=== PATIENT | female | born 1985 | race Asian ===

== ENCOUNTER 2022-03-26 22:28 | Emergency (ER) | payer BC, OTHER ==
--- OUTSIDE RECORDS SUMMARY | 2022-03-26 22:37 | XMS REPORT | Continuity of Care Document ---
:1985 Author Organization [facility] t Address [address] [place] [address] Care Team Providers Name Role Phone Hebert Pena Primary Care Physician Bernie Dorsey Attending Clinician Unavailable RICKIE ROBLES Attending Clinician Unavailable JESSICA Attending Clinician Unavailable JESSICA Attending Clinician Unavailable Rickie Robles MD Attending Clinician Doctor Unassigned, Name Attending Clinician Unavailable LEON Attending Clinician Unavailable Pedro FERRER Attending Clinician Leon CARDENAS Attending Clinician Sheela CARDENAS Attending Clinician 3, [facility] Room Attending Clinician Unavailable Dee Dee CARDENAS R Attending Clinician Mazin CARDENAS Attending Clinician Lab, - Db Attending Clinician Unavailable Bernie DE LA O Attending Clinician Unavailable Bernie DE LA O Attending Clinician Unavailable [facility] Attending Clinician Unavailable Ramon CARDENAS M Attending Clinician LEON Admitting Clinician Unavailable Leon CARDENAS Admitting Clinician Payers Payer Name Policy Type Policy Number Effective Date Expiration Date S [facility] [id number] 2020 00:00:00 [facility] [id number] 2021 CHOICE MEDICAID 00:00:00 Problems Condition Condition Condition Status Onset Resolution Last Treating Co mments Source Name Details Category Date Date Treatment Clinician Date Superficia Superficia Disease Active U nivers l l 4-29 ity of dehiscence [place] Medical operation operation [place] wound, wound, initial initial encounter encounter Chorioamni Chorioamni Disease Active U nivers onitis onitis 4-20 ity of 00:00: [place] [facility] Obesity Obesity Disease Active Univers (BMI (BMI 4-09 ity of 30-39.9) 30-39.9) 00:00: [place] [facility] 28 weeks 28 weeks Disease Active Unive rs gestation gestation 4-09 ity of of of 00:00: [place] 00 [facility] pat Branch Premature Premature Disease Active Uni vers rupture of rupture of 4-09 [place] of membranes membranes [place] second [place] second 00 [facility] trimester trimester Bran ch Premature Premature Disease Active Uni vers rupture of rupture of 4-09 [place] membranes membranes [place] 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 3-04 ity of 00:00: [place] [facility] Poor Poor Disease Active U nivers growth growth 3-04 ity of affecting affecting 00:[place] management management 00 Me dical of mother of mother Bran ch in second in second trimester, trimester, single or single or unspecifie unspecifie d fetus d fetus Maternal Maternal Disease Active Unive rs pregestati pregestati 2-25 it y of onal onal 00:00: [place] diabetes diabetes 00 Medica l classes B classes B Bran ch through R, through R, antepartum antepartum High risk High risk Disease Active Uni vers , , 2-25 it y of antepartum antepartum 00:00: [place] [facility] [place] S/P S/P Disease Active Univers 2-25 ity of section section 00:00: [place] 00 Medical Branch Allergies, Adverse Reactions, Alerts Allergy Allergy Status Severity Reaction(s) Onset Inactive Treating Comm ents Source Name Type Date Date Clinician NO KNOWN Drug Active Univers ALLERGIE Class ity of S Formerly [facility] Social History Social Habit Start Date Stop Date Quantity Comments Source ASSERTION 2021-08-25 [facility] 00:00:00 [facility] Alcohol intake 2022-03-20 2022-03-20 Ex-drinker [facility] 00:00:00 00:00:00 (finding) [facility] Exposure to 2022-03-08 2022-03-18 Not sure [facility] SARS-CoV-2 00:00:00 20:49:00 [facility] (event) Branch Tobacco use and 2018-04-10 2018-04-10 Never used Universit y of exposure 00:00:00 00:00:00 [facility] Sex Assigned At [birth year] Universit y of 00:00:00 00:00:00 [facility] Smoking Status Start Date Stop Date Source [facility] smoker [facility] Medications Ordered Filled Start Stop Current Ordering Indication Dosage Frequency Signature Comments Components Source Medication Medication Date Date Medication? Clinician (SIG) Name Name Take by [facility] ers vit 03-10 mouth. ity of no.124/iron 16:35: 00:00 [place] /folic 11 :00 Medical ( Branch VITAMIN ORAL) insulin NPH Yes 24U 24 Units, U nivers (HUMULIN N) 4-19 Subcutaneo it y of injection 13:00: , [facility] 24 Units 00 WITH Medical BREAKFAST, Branch First dose (after last modificati on) on Wed03/10/22 at 0800, Until Discontinu ed, Routine insulin NPH Yes 24U 24 Units, U nivers (HUMULIN N) 4-19 Subcutaneo it y of injection 13:00: , [facility] 24 Units 00 WITH Medical BREAKFAST, Branch First dose (after last modificati on) on Wed03/10/22 at 0800, Until Discontinu ed, Routine insulin Yes [id number] 15U inject 15 Univers regular 4-19 Units ity of human 100 00:00: under the [place] unit/mL 00 skin every Medica l injection morning Branch and evening. insulin NPH Yes 15U inject 15 Univers 100 unit/mL 4-19 Units ity of injection 00:00: under the [place] 00 skin every Medical evening. Branch insulin NPH Yes [id number] 24U inject 24 Univers 100 unit/mL 4-19 Units ity of injection 00:00: under the [place] 00 skin every Medical morning. Branch Yes [id number] 1{tbl} Take 1 Univers vitamin 4-19 tablet by ity of w/FA tablet 00:00: mouth [place] 00 daily. Medical Branch docusate Yes [id number] 240mg Take 1 U nivers calcium 240 4-19 capsule by it y of mg capsule 00:00: mouth once [place] 00 daily as Medical needed for Branch Constipati on. ferrous Yes [id number] 325mg Take 1 Un bart sulfate 325 4-19 tablet by ity of mg (65 mg 00:00: mouth 2 [place] iron) 00 (two) Medical tablet times Branch daily. ibuprofen Yes [id number] 600mg Take 1 Univers 600 mg 4-19 tablet by ity of tablet 00:00: mouth [place] 00 every 6 Medical (six) Branch hours as needed (Pain). Take with food or milk. insulin Yes 15U inject 15 Univers regular 4-19 Units ity of human 100 00:00: under the [place] unit/mL 00 skin every Medica l injection morning Branch and evening. insulin NPH Yes 15U inject 15 Univers 100 unit/mL 4-19 Units ity of injection 00:00: under the [place] 00 skin every Medical evening. Branch insulin NPH Yes [id number] 24U inject 24 Univers 100 unit/mL 4-19 Units ity of injection 00:00: under the [place] 00 skin every Medical morning. Branch Yes [id number] 1{tbl} Take 1 Univers vitamin 4-19 tablet by ity of w/FA tablet 00:00: mouth [place] 00 daily. Medical Branch docusate Yes [id number] 240mg Take 1 U nivers calcium 240 4-19 capsule by it y of mg capsule 00:00: mouth once [place] 00 daily as Medical needed for Branch Constipati on. ferrous Yes [id number] 325mg Take 1 Un bart sulfate 325 4-19 tablet by ity of mg (65 mg 00:00: mouth 2 [place] iron) 00 (two) Medical tablet times Branch daily. ibuprofen Yes [id number] 600mg Take 1 Univers 600 mg 4-19 tablet by ity of tablet 00:00: mouth [place] 00 every 6 Medical (six) Branch hours as needed (Pain). Take with food or milk. insulin Yes 15U inject 15 Univers regular 4-19 Units ity of human 100 00:00: under the [place] unit/mL 00 skin every Medica l injection morning Branch and evening. insulin NPH Yes 15U inject 15 Univers 100 unit/mL 4-19 Units ity of injection 00:00: under the [place] 00 skin every Medical evening. Branch insulin NPH Yes 24U inject 24 Univers 100 unit/mL 4-19 Units ity of injection 00:00: under the [place] 00 skin every Medical morning. Branch Yes [id number] 1{tbl} Take 1 Univers vitamin 4-19 tablet by ity of w/FA tablet 00:00: mouth [place] 00 daily. Medical Branch docusate Yes [id number] 240mg Take 1 U nivers calcium 240 4-19 capsule by it y of mg capsule 00:00: mouth once [place] 00 daily as Medical needed for Branch Constipati on. ferrous Yes [id number] 325mg Take 1 Un bart sulfate 325 4-19 tablet by ity of mg (65 mg 00:00: mouth 2 [place] iron) 00 (two) Medical tablet times Branch daily. ibuprofen Yes [id number] 600mg Take 1 Univers 600 mg 4-19 tablet by ity of tablet 00:00: mouth [place] 00 every 6 Medical (six) Branch hours as needed (Pain). Take with food or milk. insulin Yes 15U inject 15 Univers regular 4-19 Units ity of human 100 00:00: under the [place] unit/mL 00 skin every Medica l injection morning Branch and evening. insulin NPH Yes 15U inject 15 Univers 100 unit/mL 4-19 Units ity of injection 00:00: under the [place] 00 skin every Medical evening. Branch insulin NPH Yes [id number] 24U inject 24 Univers 100 unit/mL 4-19 Units ity of injection 00:00: under the [place] 00 skin every Medical morning. Branch Yes [id number] 1{tbl} Take 1 Univers vitamin 4-19 tablet by ity of w/FA tablet 00:00: mouth [place] 00 daily. Medical Branch docusate Yes [id number] 240mg Take 1 U nivers calcium 240 4-19 capsule by it y of mg capsule 00:00: mouth once [place] 00 daily as Medical needed for Branch Constipati on. ferrous Yes [id number] 325mg Take 1 Un bart sulfate 325 4-19 tablet by ity of mg (65 mg 00:00: mouth 2 [place] iron) 00 (two) Medical tablet times Branch daily. ibuprofen Yes [id number] 600mg Take 1 Univers 600 mg 4-19 tablet by ity of tablet 00:00: mouth [place] 00 every 6 Medical (six) Branch hours as needed (Pain). Take with food or milk. insulin Yes 15U inject 15 Univers regular 4-19 Units ity of human 100 00:00: under the [place] unit/mL 00 skin every Medica l injection morning Branch and evening. insulin NPH Yes 15U inject 15 Univers 100 unit/mL 4-19 Units ity of injection 00:00: under the [place] 00 skin every Medical evening. Branch insulin NPH Yes [id number] 24U inject 24 Univers 100 unit/mL 4-19 Units ity of injection 00:00: under the [place] 00 skin every Medical morning. Branch Yes [id number] 1{tbl} Take 1 Univers vitamin 4-19 tablet by ity of w/FA tablet 00:00: mouth [place] 00 daily. Medical Branch docusate Yes [id number] 240mg Take 1 U nivers calcium 240 4-19 capsule by it y of mg capsule 00:00: mouth once [place] 00 daily as Medical needed for Branch Constipati on. ferrous Yes [id number] 325mg Take 1 Un bart sulfate 325 4-19 tablet by ity of mg (65 mg 00:00: mouth 2 [place] iron) 00 (two) Medical tablet times Branch daily. ibuprofen Yes [id number] 600mg Take 1 Univers 600 mg 4-19 tablet by ity of tablet 00:00: mouth [place] 00 every 6 Medical (six) Branch hours as needed (Pain). Take with food or milk. insulin Yes 15U inject 15 Univers regular 4-19 Units ity of human 100 00:00: under the [place] unit/mL 00 skin every Medica l injection morning Branch and evening. insulin NPH Yes 15U inject 15 Univers 100 unit/mL 4-19 Units ity of injection 00:00: under the [place] 00 skin every Medical evening. Branch insulin NPH Yes 24U inject 24 Univers 100 unit/mL 4-19 Units ity of injection 00:00: under the [place] 00 skin every Medical morning. Branch Yes [id number] 1{tbl} Take 1 Univers vitamin 4-19 tablet by ity of w/FA tablet 00:00: mouth [place] 00 daily. Medical Branch docusate Yes [id number] 240mg Take 1 U nivers calcium 240 4-19 capsule by it y of mg capsule 00:00: mouth once [place] 00 daily as Medical needed for Branch Constipati on. ferrous Yes [id number] 325mg Take 1 Un bart sulfate 325 4-19 tablet by ity of mg (65 mg 00:00: mouth 2 [place] iron) 00 (two) Medical tablet times Branch daily. ibuprofen Yes [id number] 600mg Take 1 Univers 600 mg 4-19 tablet by ity of tablet 00:00: mouth [place] 00 every 6 Medical (six) Branch hours as needed (Pain). Take with food or milk. insulin Yes 15U inject 15 Univers regular 4-19 Units ity of human 100 00:00: under the [place] unit/mL 00 skin every Medica l injection morning Branch and evening. insulin NPH Yes 15U inject 15 Univers 100 unit/mL 4-19 Units ity of injection 00:00: under the [place] 00 skin every Medical evening. Branch insulin NPH Yes [id number] 24U inject 24 Univers 100 unit/mL 4-19 Units ity of injection 00:00: under the [place] 00 skin every Medical morning. Branch Yes [id number] 1{tbl} Take 1 Univers vitamin 4-19 tablet by ity of w/FA tablet 00:00: mouth [place] 00 daily. Medical Branch docusate Yes [id number] 240mg Take 1 U nivers calcium 240 4-19 capsule by it y of mg capsule 00:00: mouth once [place] 00 daily as Medical needed for Branch Constipati on. ferrous Yes [id number] 325mg Take 1 Un bart sulfate 325 4-19 tablet by ity of mg (65 mg 00:00: mouth 2 [place] iron) 00 (two) Medical tablet times Branch daily. ibuprofen Yes [id number] 600mg Take 1 Univers 600 mg 4-19 tablet by ity of tablet 00:00: mouth [place] 00 every 6 Medical (six) Branch hours as needed (Pain). Take with food or milk. insulin Yes [id number] 15U inject 15 Univers regular 4-19 Units ity of human 100 00:00: under the [place] unit/mL 00 skin every Medica l injection morning Branch and evening. insulin NPH Yes [id number] 15U inject 15 Univers 100 unit/mL 4-19 Units ity of injection 00:00: under the [place] 00 skin every Medical evening. Branch insulin NPH Yes [id number] 24U inject 24 Univers 100 unit/mL 4-19 Units ity of injection 00:00: under the [place] 00 skin every Medical morning. Branch Yes [id number] 1{tbl} Take 1 Univers vitamin 4-19 tablet by ity of w/FA tablet 00:00: mouth [place] 00 daily. Medical Branch docusate Yes [id number] 240mg Take 1 U nivers calcium 240 4-19 capsule by it y of mg capsule 00:00: mouth once [place] 00 daily as Medical needed for Branch Constipati on. ferrous Yes [id number] 325mg Take 1 Un bart sulfate 325 4-19 tablet by ity of mg (65 mg 00:00: mouth 2 [place] iron) 00 (two) Medical tablet times Branch daily. ibuprofen Yes [id number] 600mg Take 1 Univers 600 mg 4-19 tablet by ity of tablet 00:00: mouth [place] 00 every 6 Medical (six) Branch hours as needed (Pain). Take with food or milk. HYDROcodone 2021- Yes [id number] 1{tbl} Take 1 U nivers -acetaminop 4-19 -27 tablet by it y of hen 5-325 00:00: 04:59 mouth [place] mg tablet 00 :00 every 6 Medical (six) Branch hours as needed for Pain (scale 7-10) (Pain scale above 4) for up to 7 days. Do not exceed 3 grams of acetaminop hen in 24 hours. Indication s: acute pain HYDROcodone 2021- Yes [id number] 1{tbl} Take 1 U nivers -acetaminop 4-10 03-27 tablet by it y of hen 5-325 00:00: 04:59 mouth [place] mg tablet 00 :00 every 6 Medical (six) Branch hours as needed for Pain (scale 7-10) (Pain scale above 4) for up to 7 days. Do not exceed 3 grams of acetaminop hen in 24 hours. Indication s: acute pain simethicone 2021-0 Yes 160mg 160 mg, Un bart (GAS RELIEF 4-17 Oral, ity of (SIMETHICON 23:00: PC+HS, [place] E)) 00 First dose Medical chewable (after Branch tablet 160 last mg modificati on) on 03/08/22 at 1800, Until Discontinu ed, Routine simethicone 2021-0 Yes 160mg 160 mg, Un bart (GAS RELIEF 4-17 Oral, ity of (SIMETHICON 23:00: PC+HS, [place] E)) 00 First dose Medical chewable (after Branch tablet 160 last mg modificati on) on 03/08/22 at 1800, Until Discontinu ed, Routine acetaminoph 2021-0 Yes 650mg 650 mg, Un bart en 4-17 Oral, ity of (TYLENOL) 21:53: Q6HPRN, [place] tablet 650 28 Starting Medic al mg on Sun Branch 03/08/22 at 1653, Until Discontinu ed, Routine, Pain (scale 1-3) acetaminoph Yes 650mg 650 mg, Un bart en 03-08 Oral, ity of (TYLENOL) 21:53: Q6HPRN, [place] tablet 650 28 Starting Medic al mg on Sun Branch 03/08/22 at 1653, Until Discontinu ed, Routine, Pain (scale 1-3) gentamicin 0 Yes 5mg/kg 280 mg Uni vers 280 mg in 03-08 (rounded ity of NaCl 0.9% 08:30: [place] 285 [place] (NS) 250 mL 00 mg = 5 Medica l IV infusion mg/kg ?57 Bra nch kg [place] weight), IV Infusion, Q24H ABX, First dose (after last modificati on) on [place] 03/08/22 at 0330, Until Discontinu ed, Administer over 60 Minutes, 250 mL
Reas on for Anti-Infec tive: Empiric Therapy for Suspected Infection< br>Empiric Therapy Site: Pelvic
Duration of therapy: 72 hours gentamicin 0 2021- No 5mg/kg 280 mg Un bart 280 mg in 03-08 04-19 (rounded ity o f NaCl 0.9% 08:30: 12:31 from 285 [place] (NS) 250 mL 00 :44 mg = 5 Medica l IV infusion mg/kg ?57 Bra nch kg [place] weight), IV Infusion, Q24H ABX, First dose (after last modificati on) on [place] 03/08/22 at 0330, Until Discontinu ed, Administer over 60 Minutes, 250 mL
Reas on for Anti-Infec tive: Empiric Therapy for Suspected Infection< br>Empiric Therapy Site: Pelvic
Duration of therapy: 72 hours insulin NPH Yes 14U 14 Units, U nivers (HUMULIN N) 03-08 Subcutaneo it y of injection 01:00: [place], [place] 14 Units 00 1999, Medical First dose Branch (after last modificati on) on [facility] 03/07/22 at 2000, Until Discontinu ed, Routine insulin NPH Yes 14U 14 Units, U nivers (HUMULIN N) 03-08 Subcutaneo it y of injection 01:00: [place], QPM AT [place] 14 Units 00 1999, Medical First dose Branch (after last modificati on) on 03/07/22 at 2000, Until Discontinu ed, Routine insulin 2021-0 Yes 15U 15 Units, Unive rs regular 4-16 Subcutaneo ity of human 23:00: [place], [place] (HUMULIN R) 00 DINNER, Medic al injection First dose Bran ch 15 Units (after last modificati on) on 03/07/22 at 1800, Until Discontinu ed, Routine insulin 2021-0 Yes 15U 15 Units, Unive rs regular 4-16 Subcutaneo ity of human 23:00: [place], [place] (HUMULIN R) 00 DINNER, Medic al injection First dose Bran ch 15 Units (after last modificati on) on 03/07/22 at 1800, Until Discontinu ed, Routine lactated 2021-0 2021- No 500mL at 999 Unive rs ringers IV 03-07 04-16 mL/hr, 500 it y of infusion 20:00: 19:50 mL, [place] 500 mL 00 :00 Intravenou Medical s, ONCE, 1 Branch dose, On 03/07/22 at 1500, Routine lactated 0 2021- No 500mL at 999 Unive rs ringers IV 03-07 04-16 mL/hr, 500 it y of infusion 16:15: 16:15 mL, [place] 500 mL 00 :00 Intravenou Medical s, ONCE, 1 Branch dose, On 03/07/22 at 1115, Routine clindamycin Yes 900mg 900 mg, IV Univers in 5 % 03-07 Piggyback, ity of dextrose 15:00: Q8H ABX, [place] (CLEOCIN) 00 First dose Medi pat 900 mg/50 on Sat Branch mL IV 03/07/22 at piggyback 1000, RTU 900 mg Until Discontinu ed, Administer over 30 Minutes, 50 mL
Reas on for Anti-Infec tive: Documented Infection< br>Documen lynn Infection Site: Pelvic
Duration of Therapy: 7 days
Re stricted use approved by: [employer]
human geography faculty member approving Restricted medication : ALLIE COKER clindamycin 2021-0 2022- No 900mg 900 mg, IV Univers in 5 % 03-0719 Piggyback, ity of dextrose 15:00: 12:31 Q8H ABX, [place] (CLEOCIN) 00 :44 First dose Medi pat 900 mg/50 on Sat Branch mL IV 03/07/22 at piggyback 1000, RTU 900 mg Until Discontinu ed, Administer over 30 Minutes, 50 mL
Reas on for Anti-Infec tive: Documented Infection< br>Documen lynn Infection Site: Pelvic
Duration of Therapy: 7 days
Re stricted use approved by: [employer]
human geography faculty member approving Restricted medication : ALLIE COKER simethicone No 120mg 120 mg, U nivers (GAS RELIEF 03-0717 Oral, ity of (SIMETHICON 14:00: 20:18 PC+HS, [place] E)) 00 :27 First dose Medical chewable on Sat Branch tablet 120 03/07/22 at mg 0900, Until Discontinu ed, Routine insulin Yes 15U 15 Units, Unive rs regular -16 Subcutaneo ity of human 13:00: , [facility] (HUMULIN R) 00 WITH Medical injection BREAKFAST, Bran ch 15 Units First dose (after last modificati on) on 03/07/22 at 0800, Until Discontinu ed, Routine insulin Yes 15U 15 Units, Unive rs regular -16 Subcutaneo ity of human 13:00: , [facility] (HUMULIN R) 00 WITH Medical injection BREAKFAST, Bran ch 15 Units First dose (after last modificati on) on 03/07/22 at 0800, Until Discontinu ed, Routine insulin NPH 2021- No 22U 22 Units, Univers (HUMULIN N) 03-0718 Subcutaneo i ty of injection 13:00: 16:12 , [facility] [place] 22 Units 00 :18 WITH Medical BREAKFAST, Branch First dose (after last modificati on) on 03/07/22 at 0800, Until Discontinu ed, Routine ibuprofen Yes 600mg 600 mg, Univ ers (IBU) 16 Oral, Q6H, ity of tablet 600 11:00: First dose [place] mg 00 on [facility] Medical 03/07/22 at Branch 0600, Until Discontinu ed, Routine ibuprofen Yes 600mg 600 mg, [facility] ers (IBU) 4-16 Oral, Q6H, ity of tablet 600 11:00: First dose [place] mg 00 on [facility] Medical 03/07/22 at Branch 0600, Until Discontinu ed, Routine rho(D) Yes 300ug 300 mcg, [facility] [place] [facility] immune 4-16 Intramuscu ity of globulin 10:42: lar, ONCE, [place] (RHOGAM) 28 For 1 Medical syringe 300 dose, Branch mcg Conditiona l, Routine rho(D) Yes 300ug 300 mcg, [facility] [place] [facility] immune 4-16 Intramuscu ity of globulin 10:42: lar, ONCE, [place] (RHOGAM) 28 For 1 Medical syringe 300 dose, Branch mcg Conditiona l, Routine HYDROcodone 0 Yes 2{tbl} 2 tablet, Univers -acetaminop 4-16 Oral, ity of hen (NORCO 10:42: Q6HPRN, [place] 5) 5-325 mg 24 Starting Medi pat tablet 2 on Sat Branch tablet 03/07/22 at 0542, Until Discontinu ed, Routine, Pain (scale 7-10), If uncontroll ed by Ibuprofen HYDROcodone Yes 1{tbl} 1 tablet, Univers -acetaminop 4-16 Oral, ity of hen (NORCO 10:42: Q6HPRN, [place] 5) 5-325 mg 24 Starting Medi pat tablet 1 on Sat Branch tablet 03/07/22 at 0542, Until Discontinu ed, Routine, Pain (scale 4-6), If uncontroll ed by Ibuprofen diphenhydrA Yes 25mg 25 mg, [facility] MINE 4-16 Slow IV ity of (BENADRYL) 10:42: [place], [place] injection 24 Q6HPRN, Medical 25 mg Starting Branch on 03/07/22 at 0542, Until Discontinu ed, Routine, Itching diphenhydrA Yes 25mg 25 mg, [facility] MINE 4-16 Oral, ity of (BENADRYL) 10:42: Q6HPRN, [place] tablet 25 24 Starting Medica l mg on Sat Branch 03/07/22 at 0542, Until Discontinu ed, Routine, Sleep, Itching ondansetron 2021-0 Yes 4mg 4 mg, Slow Univers (ZOFRAN 4-16 IV Push, ity of (PF)) 10:42: Q8HPRN, [place] injection 4 24 Starting Medi pat mg on Sat Branch 03/07/22 at 0542, Until Discontinu ed, Routine, Nausea and Vomiting (N/V) bisacodyL 2021-0 Yes 10mg 10 mg, Univer s (DULCOLAX) 4-16 Rectal, ity of suppository 10:42: QDAILYPRN, [place] 10 mg 24 Starting Medical on Sat Branch 03/07/22 at 0542, Until Discontinu ed, Routine, Constipati on docusate 2021-0 Yes 240mg 240 mg, Unive rs calcium -16 Oral, ity of (SURFAK) 10:42: QDAILYPRN, [place] capsule 240 24 Starting Medi pat mg on Sat Branch 03/07/22 at 0542, Until Discontinu ed, Routine, Constipati on magnesium 2021-0 Yes 30mL 30 mL, Univer s hydroxide -16 Oral, ity of (MILK OF 10:42: QDAILYPRN, [place] MAGNESIA) 24 Starting Medica l 400 mg/5 mL on Sat Branch suspension 03/07/22 at 30 mL 0542, Until Discontinu ed, Routine, Constipati on HYDROcodone 2021-0 Yes 2{tbl} 2 tablet, Univers -acetaminop 4-16 Oral, ity of hen (NORCO 10:42: Q6HPRN, [place] 5) 5-325 mg 24 Starting Medi pat tablet 2 on Sat Branch tablet 03/07/22 at 0542, Until Discontinu ed, Routine, Pain (scale 7-10), If uncontroll ed by Ibuprofen HYDROcodone 2021-0 Yes 1{tbl} 1 tablet, Univers -acetaminop 4-16 Oral, ity of hen (NORCO 10:42: Q6HPRN, [place] 5) 5-325 mg 24 Starting Medi pat tablet 1 on Sat Branch tablet 03/07/22 at 0542, Until Discontinu ed, Routine, Pain (scale 4-6), If uncontroll ed by Ibuprofen diphenhydrA 2021-0 Yes 25mg 25 mg, Univ ers MINE 4-16 Slow IV ity of (BENADRYL) 10:42: [place], [place] injection 24 Q6HPRN, Medical 25 mg Starting Branch on 03/07/22 at 0542, Until Discontinu ed, Routine, Itching diphenhydrA 2021-0 Yes 25mg 25 mg, Univ ers MINE 4-16 Oral, ity of (BENADRYL) 10:42: Q6HPRN, [place] tablet 25 24 Starting Medica l mg on Sat Branch 03/07/22 at 0542, Until Discontinu ed, Routine, Sleep, Itching ondansetron 2021-0 Yes 4mg 4 mg, Slow Univers (ZOFRAN 16 IV Push, ity of (PF)) 10:42: Q8HPRN, [place] injection 4 24 Starting Medi pat mg on Sat Branch 03/07/22 at 0542, Until Discontinu ed, Routine, Nausea and Vomiting (N/V) bisacodyL 2021-0 Yes 10mg 10 mg, Univer s (DULCOLAX) 16 Rectal, ity of suppository 10:42: QDAILYPRN, [place] 10 mg 24 Starting Medical on Sat Branch 03/07/22 at 0542, Until Discontinu ed, Routine, Constipati on docusate 0 Yes 240mg 240 mg, Unive rs calcium 16 Oral, ity of (SURFAK) 10:42: QDAILYPRN, [place] as capsule 240 24 Starting Medi pat mg on Sat Branch 03/07/22 at 0542, Until Discontinu ed, Routine, Constipati on magnesium 2021-0 Yes 30mL 30 mL, Univer s hydroxide 16 Oral, ity of (MILK OF 10:42: QDAILYPRN, [place] as MAGNESIA) 24 Starting Medica l 400 mg/5 mL on Sat Branch suspension 03/07/22 at 30 mL 0542, Until Discontinu ed, Routine, Constipati on ketorolac 2021-0 2022- No 30mg 30 mg, Unive rs (TORADOL) 4-16 04-16 Slow IV ity of injection 08:44: 10:34 Push, PRN, [place] 30 mg 07 :00 1 dose, Medical Starting Branch on 03/07/22 at 0344, Until 03/07/22 at 0534, Routine, Pain (scale 7-10)
F aculty member approving Restricted medication : MONICA BRADLEY gentamicin 2021- No 5mg/kg 280 mg Un bart 280 mg in 03-07 (rounded ity o f NaCl 0.9% 08:30: 10:08 from 285 [place] as (NS) 250 mL 00 :05 mg = 5 Medica l IV infusion mg/kg ?57 Bra nch kg [place] weight), IV Infusion, Q24H ABX, First dose on 03/07/22 at 0330, Until Discontinu ed, Administer over 60 Minutes, 250 mL
Reas on for Anti-Infec tive: Empiric Therapy for Suspected Infection< br>Empiric Therapy Site: Pelvic
Duration of therapy: 72 hours lactated 2021- No 1000mL at 125 Univ ers ringers IV 03-07 mL/hr, ity of infusion 07:45: 10:56 1,000 mL, [place] as 1,000 mL 00 :09 IV Medical Infusion, Branch CONTINUOUS , Starting on 03/07/22 at 0245, Until 03/07/22 at 0556, MICHAEL HYDROcodone 2021- No 1{tbl} 1 tablet, Univers -acetaminop 03-07 Oral, ity of hen (NORCO) 07:39: 09:35 Q6HPRN, 1 [place] 10-325 mg 01 :00 dose, Medical tablet 1 Starting Branch tablet on 03/07/22 at 0239, Until Discontinu ed, Routine, Pain (scale 7-10) clindamycin 2021- No 900mg 900 mg, IV Univers in 5 % 03-07 Piggyback, ity of dextrose 07:15: 07:51 O.R. Wei (CLEOCIN) 44 :00 HOLDING Medical 900 mg/50 ONCE, 1 Branch mL IV dose, piggyback Starting RTU 900 mg on 03/07/22 at 0215, Until Discontinu ed, Administer over 30 Minutes, 50 mL
Reas on for Anti-Infec tive: Empiric Therapy for Suspected Infection< br>Empiric Therapy Site: Pelvic
Duration of therapy: 72 hours
R estricted use approved by: [employer]
human geography faculty member approving Restricted medication : ALLIE COKER magnesium 2021- No 2g/h 2 g/hr (50 U nivers sulfate in 03-07-16 mL/hr), at it y of water for 07:00: 10:56 50 mL/hr, [place] injection 00 :09 IV Medical 20 gram/500 Infusion, Bra nch mL (4 %) IV CONTINUOUS infusion , Starting on 03/07/22 at 0200, Until 03/07/22 at 0556, Routine Yes Take by [facility] vit 03-07 mouth. ity of no.124/iron 04:16: [place] /folic 48 Medical ( Branch VITAMIN ORAL) lactated 2021- No 500mL at 999 [facility] ringers IV 03-07- mL/hr, 500 it y of infusion 03:45: 02:23 mL, [place] 500 mL 00 :00 Intravenou Medical s, ONCE, 1 Branch dose, On Wed03/06/22 at 2245, Routine insulin NPH 2021- No 28U 28 Units, Univers (HUMULIN N) 03-07 Subcutaneo i ty of injection 02:00: 06:31 us, QHS, [place] 28 Units 00 :29 First dose Medic al (after Branch last modificati on) on Wed03/06/22 at 2100, Until Discontinu ed, Routine insulin 2021- No 30U 30 Units, Univ ers regular 03-06 Subcutaneo ity o f human 23:00: 10:56 us, Wei (HUMULIN R) 00 :10 DINNER, Medic al injection First dose Bran ch 30 Units (after last modificati on) on Wed03/06/22 at 1800, Until Discontinu ed, Routine insulin NPH 2021- No 42U 42 Units, Univers (HUMULIN N) 03-06 Subcutaneo i ty of injection 14:00: 13:49 us, QAM, [place] 42 Units 00 :17 First dose Medic al (after Branch last modificati on) on Wed03/06/22 at 0900, Until Discontinu ed, Routine insulin No 26U 26 Units, Univ ers regular 03-06 Subcutaneo ity o f human 13:00: 13:49 us, QAM Wei (HUMULIN R) 00 :17 WITH Medical injection BREAKFAST, Bran ch 26 Units First dose (after last modificati on) on Wed03/06/22 at 0800, Until Discontinu ed, Routine insulin 2021- No 2U 2 Units, Unive rs regular 03-06 Subcutaneo ity o f human 08:00: 07:01 us, ONCE, [place] (HUMULIN R) 00 :00 1 dose, On Me dical injection 2 Wed Branch Units 03/06/22 at 0300, Routine insulin NPH No 26U 26 Units, Univers (HUMULIN N) 03-06 Subcutaneo i ty of injection 02:00: 13:49 us, QHS, [place] 26 Units 00 :17 First dose Medic al (after Branch last modificati on) on Wed03/05/22 at 2100, Until Discontinu ed, Routine insulin No 26U 26 Units, Univ ers regular 03-05 Subcutaneo ity o f human 23:00: 13:49 , Wei (HUMULIN R) 00 :17 DINNER, Medic al injection First dose Bran ch 26 Units (after last modificati on) on Wed03/05/22 at 1800, Until Discontinu ed, Routine insulin NPH No 40U 40 Units, Univers (HUMULIN N) 03-05 Subcutaneo i ty of injection 14:00: 15:09 us, QAM, [place] 40 Units 00 :31 First dose Medic al (after Branch last modificati on) on Wed03/05/22 at 0900, Until Discontinu ed, Routine insulin No 26U 26 Units, Univ ers regular 03-05 Subcutaneo ity o f human 13:00: 15:09 us, QAM [place] (HUMULIN R) 00 :31 WITH Medical injection BREAKFAST, Bran ch 26 Units First dose (after last modificati on) on Wed03/05/22 at 0800, Until Discontinu ed, Routine insulin No 24U 24 Units, [facility] ers regular 03-04 Subcutaneo ity o f human 23:00: 15:09 us, [place] (HUMULIN R) 00 :31 DINNER, Medic al injection First dose Bran ch 24 Units (after last modificati on) on Wed03/04/22 at 1800, Until Discontinu ed, Routine Sliding No Subcutaneo Uni vers Scale 03-04 us, Q6H, ity of Insulin-Reg 17:00: 10:56 First dose [place] ular + Fsbg 00 :09 (after Medica l Testing last Branch modificati on) on Wed03/04/22 at 1200, Until Discontinu ed, Routine insulin NPH No 38U 38 Units, Univers (HUMULIN N) 03-04 Subcutaneo i ty of injection 14:00: 15:25 us, QAM, [place] 38 Units 00 :22 First dose Medic al (after Branch last modificati on) on Wed03/04/22 at 0900, Until Discontinu ed, Routine insulin No 24U 24 Units, [facility] ers regular 03-04 Subcutaneo ity o f human 13:00: 15:25 [facility] WITH Medical injection BREAKFAST, Bran ch 24 Units First dose (after last modificati on) on Wed03/04/22 at 0800, Until Discontinu ed, Routine insulin NPH No 24U 24 Units, Univers (HUMULIN N) 03-04 Subcutaneo i ty of injection 02:00: 15:09 us, QHS, [place] 24 Units 00 :31 First dose Medic al (after Branch last modificati on) on Wed03/03/22 at 2100, Until Discontinu ed, Routine insulin 2021- No 22U 22 Units, Univ ers regular 03-03 Subcutaneo ity o f human 23:00: 15:25 us, [place] (HUMULIN R) 00 :22 DINNER, Medic al injection First dose Bran ch 22 Units (after last modificati on) on Wed03/03/22 at 1800, Until Discontinu ed, Routine Sliding 2021- No Subcutaneo Uni vers Scale 03-03 us, AC+HS, ity of Insulin-Reg 16:30: 15:25 First dose [place] ular + Fsbg 00 :22 on Wed Medica l Testing 03/03/22 at Branch 1130, Until Discontinu ed, Routine insulin NPH 2021- No 36U 36 Units, Univers (HUMULIN N) 03-03 Subcutaneo i ty of injection 14:00: 15:46 us, QAM, [place] 36 Units 00 :59 First dose Medic al on Wed Branch 03/03/22 at 0900, Until Discontinu ed, Routine insulin 2021- No 22U 22 Units, Univ ers regular 03-03 Subcutaneo ity o f human 13:00: 15:46 us, QAM [place] (HUMULIN R) 00 :59 WITH Medical injection BREAKFAST, Bran ch 22 Units First dose on Wed03/03/22 at 0800, Until Discontinu ed, Routine insulin NPH 2021- No 22U 22 Units, Univers (HUMULIN N) 03-03 Subcutaneo i ty of injection 02:00: 15:46 us, QHS, [place] 22 Units 00 :59 First dose Medic al (after Branch last modificati on) on Wed03/02/22 at 2100, Until Discontinu ed, Routine insulin 2021- No 20U 20 Units, Univ ers regular 03-02 Subcutaneo ity o f human 23:00: 15:46 us, [place] (HUMULIN R) 00 :59 DINNER, Medic al injection First dose Bran ch 20 Units on Wed03/02/22 at 1800, Until Discontinu ed, Routine insulin 2021- No 1U/h 1 Units/hr Uni vers regular 03-02 (1 mL/hr), ity o f human 01:39: 23:56 IV [place] (HUMULIN R) 21 :21 Infusion, Med ical 100 Units TITRATE, Branch in NaCl Parameters 0.9% (NS) in Admin. 100 mL Instr., infusion Starting on Wed03/01/22 at 2038
Pr ior to connecting infusion to peripheral line, waste a minimum of 25 mL to allow maximum adherence to the plastic tubing.&nb sp; D eliver via volume controlled infusion pump with buretrol at the most proximal port. Add 1 hours volume to the buretrol each hour and infuse.&nb sp; & nbsp;&nbsp ;Instructi on for insulin drip: Please waste the first 30 ml of the drip. FSBG q1hr.&nbsp ; &nb sp;Check FSBG q 1hr. See separate fluid order&nbsp ; If FSBG >191, titrate insulin drip to 10 units/hr and notify hide house supervisor. If FSBG 171-190, titrate insulin drip to 8 units/hr If FSBG 151-170, titrate insulin drip to 6 unit/hr If FSBG 131-150, titrate insulin drip to 4 units/hr If FSBG 111-130, titrate insulin drip to 3 units/hr&n bsp;If FSBG 91-110, titrate insulin drip to 2 units/hr<B R>If FSBG 71-90, titrate insulin drip to 1 units/hr&n bsp;If FSBG <70, stop insulin, start D5 at 200 mL/hr and notify MD. Check blood glucose every 15 minutes until glucose > 70 twice. When blood glucose is 70, restart insulin infusion at lower algorithm and reduce D5 to 100 mL/hr&nbsp ;If FSBG < 50, stop insulin, start D10 at 200 mL/hr. Check blood glucose every 15 minutes until glucose > 70 twice. When blood glucose is 70, restart insulin infusion at lower algorithm and reduce D5 to 100 mL/hr
insulin 2021-0 2021- No 1U/h 1 Units/hr Uni vers regular 03-01-11 (1 mL/hr), ity o f human 23:42: 01:39 IV [place] (HUMULIN R) 52 :51 Infusion, Med ical 100 Units TITRATE, Branch in NaCl Parameters 0.9% (NS) in Admin. 100 mL Instr., infusion Starting on 03/01/22 at 1842
Pr ior to connecting infusion to peripheral line, waste a minimum of 25 mL to allow maximum adherence to the plastic tubing.&nb sp; D eliver via volume controlled infusion pump with buretrol at the most proximal port. Add 1 hours volume to the buretrol each hour and infuse.&nb sp; & nbsp;&nbsp ;Instructi on for insulin drip: Please waste the first 30 ml of the drip. FSBG q1hr.&nbsp ; &nb sp;Check FSBG q 1hr. See separate fluid order&nbsp ; If FSBG >191, titrate insulin drip to 8 units/hr and notify hide house supervisor. If FSBG 171-190, titrate insulin drip to 6 units/hr If FSBG 151-170, titrate insulin drip to 5 unit/hr If FSBG 131-150, titrate insulin drip to 4 units/hr If FSBG 111-130, titrate insulin drip to 3 units/hr&n bsp;If FSBG 91-110, titrate insulin drip to 2 units/hr&l t;BR>If FSBG 71-90, titrate insulin drip to 1 units/hr&n bsp;If FSBG <70, stop insulin, start D5 at 200 mL/hr and notify MD. Check blood glucose every 15 minutes until glucose > 70 twice. When blood glucose is 70, restart insulin infusion at lower algorithm and reduce D5 to 100 mL/hr&nbsp ;If FSBG < 50, stop insulin, start D10 at 200 mL/hr. Check blood glucose every 15 minutes until glucose > 70 twice. When blood glucose is 70, restart insulin infusion at lower algorithm and reduce D5 to 100 mL/hr
Sliding 2021-2021- No Subcutaneo Uni vers Scale 4-10 04-10 us, AC+HS, ity of Insulin-Reg 21:30: 23:43 First dose [place] ular + Fsbg 00 :43 on [place] Medica l Testing 03/01/22 at Branch 1630, Until Discontinu ed, Routine insulin 2021- No 1U/h 1 Units/hr Uni vers regular 03-01-10 (1 mL/hr), ity o f human 17:15: 23:43 IV [place] (HUMULIN R) 32 :43 Infusion, Med ical 100 Units TITRATE, Branch in NaCl Parameters 0.9% (NS) in Admin. 100 mL Instr., infusion Starting on [place] 03/01/22 at 1215
Pr ior to connecting infusion to peripheral line, waste a minimum of 25 mL to allow maximum adherence to the plastic tubing.&nb sp; D eliver via volume controlled infusion pump with buretrol at the most proximal port. Add 1 hours volume to the buretrol each hour and infuse.&nb sp; & nbsp;&nbsp ;Instructi on for insulin drip: Please waste the first 30 ml of the drip. FSBG q1hr.&nbsp ; &nb sp;Check FSBG q 1hr. See separate fluid order&nbsp ; If FSBG >191, titrate insulin drip to 8 units/hr and notify hide house supervisor. If FSBG 171-190, titrate insulin drip to 6 units/hr If FSBG 151-170, titrate insulin drip to 5 unit/hr If FSBG 131-150, titrate insulin drip to 4 units/hr If FSBG 111-130, titrate insulin drip to 3 units/hr&n bsp;If FSBG 91-110, titrate insulin drip to 2 units/hr&l t;BR>If FSBG 71-90, titrate insulin drip to 1 units/hr&n bsp;If FSBG <70, stop insulin, start D5 at 200 mL/hr and notify MD. Check blood glucose every 15 minutes until glucose > 70 twice. When blood glucose is 70, restart insulin infusion at lower algorithm and reduce D5 to 100 mL/hr&nbsp ;If FSBG < 50, stop insulin, start D10 at 200 mL/hr. Check blood glucose every 15 minutes until glucose > 70 twice. When blood glucose is 70, restart insulin infusion at lower algorithm and reduce D5 to 100 mL/hr
insulin 2021- No 8U/h 8 Units/hr Uni vers regular 03-0110 (8 mL/hr), ity o f human 16:45: 17:18 IV [place] (HUMULIN R) 48 :31 Infusion, Med ical 100 Units TITRATE, Branch in NaCl Parameters 0.9% (NS) in Admin. 100 mL Instr., infusion Starting on [place] 03/01/22 at 1145
Pr ior to connecting infusion to peripheral line, waste a minimum of 25 mL to allow maximum adherence to the plastic tubing.&nb sp; D eliver via volume controlled infusion pump with buretrol at the most proximal port. Add 1 hours volume to the buretrol each hour and infuse.&nb sp; & nbsp;&nbsp ;Instructi on for insulin drip: Please waste the first 30 ml of the drip. FSBG q1hr.
2021- No 1{tbl} 1 tablet, U nivers vitamin 03-0116 Oral, ity of w/FA tablet 14:00: 10:56 DAILY, [place] as 1 tablet 00 :09 First dose Medic al on [facility] 03/01/22 at 0900, Until Discontinu ed, Routine insulin 2021- No 4U/h 4 Units/hr Uni vers regular 03-01 (4 mL/hr), ity o f human 13:43: 16:46 IV [place] (HUMULIN R) 14 :19 Infusion, Med ical 100 Units TITRATE, Branch in NaCl Parameters 0.9% (NS) in Admin. 100 mL Instr., infusion Starting on [place] 03/01/22 at 0843
Pr ior to connecting infusion to peripheral line, waste a minimum of 25 mL to allow maximum adherence to the plastic tubing.&nb sp; D eliver via volume controlled infusion pump with buretrol at the most proximal port. Add 1 hours volume to the buretrol each hour and infuse.&nb sp; & nbsp;&nbsp ;Instructi on for insulin drip: Please waste the first 30 ml of the drip. FSBG q1hr. &nbs p;BG < 80 &n bsp; &nbs p; &n bsp; &nbs p; In sulin 0 unit/hr&nb sp; & nbsp;&nbsp ; &nb sp; & nbsp; IVF at 125 ml/hr D5LR BG 80-100&nbs p; &n bsp; &nbs p; &n bsp; Insulin 0.5 unit/hr&nb sp; & nbsp;&nbsp ; &nb sp; IVF at 125 ml/hr D5LR BG &n bsp;101-14 0 &nb sp; & nbsp;&nbsp ; Ins ulin 1 unit/hr&nb sp; & nbsp;&nbsp ; &nb sp; & nbsp;& nbsp;&nbsp ;IVF at 125 ml/hr D5LR BG &n bsp;141-18 0 &nb sp;&nb sp; & nbsp;&nbsp ;Insulin 1.5 unit/hr&nb sp; & nbsp;&nbsp ; &nb sp; IVF at 125 ml/hr&nbsp ; NS& nbsp;BG&nb sp; 1 81-220&nbs p; &n bsp; &nbs p;Insulin 2.0 unit/hr&nb sp; & nbsp;&nbsp ; &nb sp; IVF at 125 ml/hr&nbsp ; NS& nbsp;BG&nb sp; > 220 & nbsp;&nbsp ; &nb sp; & nbsp;&nbsp ; &nb sp;Insulin 2.5 unit/hr&nb sp; & nbsp;&nbsp ; &nb sp; IVF at 125 ml/hr&nbsp ; NS& nbsp;BG&nb sp; > 250 & nbsp;&nbsp ; &nb sp; & nbsp;&nbsp ; &nb sp;Notify supervisor dog license officer&nb sp; IVF at 125 ml/hr&nbsp ; NS< br> betamethaso 2021- No 12mg 12 mg, Uni vers ne acet,sod 03-01 Intramuscu i ty of phos 09:00: 09:37 lar, ONCE, Wei (CELESTONE 00 :00 1 dose, On Med ical SOLUSPAN) 6 [place] Branch mg/mL 03/01/22 at injection 0400, 12 mg Routine insulin 2021- No 1U/h 1 Units/hr Uni vers regular 03-01 (1 mL/hr), ity o f human 07:43: 13:43 IV [place] (HUMULIN R) 12 :26 Infusion, Med ical 100 Units TITRATE, Branch in NaCl Parameters 0.9% (NS) in Admin. 100 mL Instr., infusion Starting on 03/01/22 at 0243
Pr ior to connecting infusion to peripheral line, waste a minimum of 25 mL to allow maximum adherence to the plastic tubing.&nb sp; D eliver via volume controlled infusion pump with buretrol at the most proximal port. Add 1 hours volume to the buretrol each hour and infuse.&nb sp; & nbsp;&nbsp ;Instructi on for insulin drip: Please waste the first 30 ml of the drip. FSBG q1hr. &nbs p;BG < 80 &n bsp; &nbs p; &n bsp; &nbs p; In sulin 0 unit/hr&nb sp; & nbsp;&nbsp ; &nb sp; & nbsp; IVF at 125 ml/hr D5LR BG 80-100&nbs p; &n bsp; &nbs p; &n bsp; Insulin 0.5 unit/hr&nb sp; & nbsp;&nbsp ; &nb sp; IVF at 125 ml/hr D5LR BG &n bsp;101-14 0 &nb sp; & nbsp;&nbsp ; Ins ulin 1 unit/hr&nb sp; & nbsp;&nbsp ; &nb sp; & nbsp;& nbsp;&nbsp ;IVF at 125 ml/hr D5LR BG &n bsp;141-18 0 &nb sp;&nb sp; & nbsp;&nbsp ;Insulin 1.5 unit/hr&nb sp; & nbsp;&nbsp ; &nb sp; IVF at 125 ml/hr&nbsp ; NS& nbsp;BG&nb sp; 1 81-220&nbs p; &n bsp; &nbs p;Insulin 2.0 unit/hr&nb sp; & nbsp;&nbsp ; &nb sp; IVF at 125 ml/hr&nbsp ; NS& nbsp;BG&nb sp; > 220 & nbsp;&nbsp ; &nb sp; & nbsp;&nbsp ; &nb sp;Insulin 2.5 unit/hr&nb sp; & nbsp;&nbsp ; &nb sp; IVF at 125 ml/hr&nbsp ; NS& nbsp;BG&nb sp; > 250 & nbsp;&nbsp ; &nb sp; & nbsp;&nbsp ; &nb sp;Notify supervisor dog license officer&nb sp; IVF at 125 ml/hr&nbsp ; NS< br> magnesium 2021- No 2g/h 2 g/hr (50 U nivers sulfate in 03-01 04-10 mL/hr), at it y of water for 06:30: 18:29 50 mL/hr, [place] injection 00 :00 IV Medical 20 gram/500 Infusion, Bra nch mL (4 %) IV CONTINUOUS infusion , Starting on 03/01/22 at 0130, Until 03/01/22 at 1329, MICHAEL Sliding Subcutaneo Uni vers Scale 4- 04-10 us, Q4H, ity of Insulin-Reg 05:00: 06:45 First dose [place] ular + Fsbg 00 :48 (after Medica l Testing last Branch modificati on) on 03/01/22 at 0000, Until Discontinu ed, Routine Sliding No Subcutaneo Uni vers Scale 4-10 04-10 us, Q4H, ity of Insulin-Reg 01:00: 04:58 First dose [place] ular + Fsbg 00 :13 (after Medica l Testing last Branch modificati on) on 02/28/22 at 2000, Until Discontinu ed, Routine insulin No 20U 20 Units, Univ ers regular 03-01-10 Subcutaneo ity o f human 01:00: 06:45 us, QPM, [place] (HUMULIN R) 00 :48 First dose Me dical injection on Sat Branch 20 Units 02/28/22 at 2000, Until Discontinu ed, Routine insulin NPH 2021- No 22U 22 Units, Univers (HUMULIN N) 03-01 Subcutaneo i ty of injection 01:00: 06:45 us, QPM, [place] 22 Units 00 :48 First dose Medic al on Sat Branch 02/28/22 at 2000, Until Discontinu ed, Routine lactated 2021- No 1000mL at 125 Univ ers ringers IV 02-28-16 mL/hr, ity of infusion 17:30: 10:56 1,000 mL, [place] 1,000 mL 00 :09 IV Medical Infusion, Branch CONTINUOUS , Starting on 02/28/22 at 1230, Until 03/07/22 at 0556, Routine Sliding 2021- No Subcutaneo Uni vers Scale 02-28 us, AC+HS, ity of Insulin-Reg 16:30: 23:57 First dose [place] ular + Fsbg 00 :51 on Sat Medica l Testing 02/28/22 at Branch 1130, Until Discontinu ed, Routine magnesium 2021- No 2g/h 2 g/hr (50 U nivers sulfate in 02-28-10 mL/hr), at it y of water for 15:45: 00:41 50 mL/hr, [place] injection 00 :38 IV Medical 20 gram/500 Infusion, Bra nch mL (4 %) IV CONTINUOUS infusion , Starting on 02/28/22 at 1045, Until 02/28/22 at 1941, Routine docusate 2021- No 240mg 240 mg, [facility] ers calcium 02-28- Oral, ity of (SURFAK) 14:10: 10:56 QPRN, [place] capsule 240 16 :09 Starting Medi pat mg on Sat Branch 02/28/22 at 0910, Until 03/07/22 at 0556, Routine, Constipati on Yes Take by [facility] rs vit 4-09 mouth. ity of no.124/iron 07:12: [place] /folic 08 Medical ( Branch VITAMIN ORAL) Yes Take by [facility] rs vit 4-09 mouth. ity of no.124/iron 07:12: [place] /folic 08 Medical ( Branch VITAMIN ORAL) Yes Take by [facility] rs vit 3-04 mouth. ity of no.124/iron 11:58: [place] /folic 28 Medical ( Branch VITAMIN ORAL) Yes Take by Unive rs vit 3-04 mouth. ity of no.124/iron 11:58: [place] /folic 28 Medical ( Branch VITAMIN ORAL) Yes Take by Unive rs vit 3-04 mouth. ity of no.124/iron 11:58: [place] /folic 28 Medical ( Branch VITAMIN ORAL) Yes Take by Unive rs vit 3-04 mouth. ity of no.124/iron 11:58: [place] /folic 28 Medical ( Branch VITAMIN ORAL) Yes Take by Unive rs vit 3-04 mouth. ity of no.124/iron 11:58: [place] /folic 28 Medical ( Branch VITAMIN ORAL) Yes Take by Unive rs vit 3-04 mouth. ity of no.124/iron 11:58: [place] /folic 28 Medical ( Branch VITAMIN ORAL) insulin Yes Inject 14 Univers regular 3-04 units ity of human 100 00:00: every am [place] unit/mL 00 and 11 Medical injection units Branch every PM insulin NPH Yes Inject 28 Univers 100 unit/mL 3-04 units ity of injection 00:00: every AM [place] 00 and 11 Medical units Branch every 9 PM insulin 0 Yes Inject 14 Univers regular 3-04 units ity of human 100 00:00: every am [place] unit/mL 00 and 11 Medical injection units Branch every PM insulin NPH Yes Inject 28 Univers 100 unit/mL 3-04 units ity of injection 00:00: every AM [place] 00 and 11 Medical units Branch every 9 PM insulin 0 Yes Inject 14 Univers regular 3-04 units ity of human 100 00:00: every am [place] unit/mL 00 and 11 Medical injection units Branch every PM insulin NPH Yes Inject 28 Univers 100 unit/mL 3-04 units ity of injection 00:00: every AM [place] 00 and 11 Medical units Branch every 9 PM insulin Yes Inject 14 Univers regular 3-04 units ity of human 100 00:00: every am [place] unit/mL 00 and 11 Medical injection units Branch every PM insulin NPH Yes Inject 28 Univers 100 unit/mL 3-04 units ity of injection 00:00: every AM [place] 00 and 11 Medical units Branch every 9 PM insulin 0 Yes Inject 14 Univers regular 3-04 units ity of human 100 00:00: every am [place] unit/mL 00 and 11 Medical injection units Branch every PM insulin NPH Yes Inject 28 Univers 100 unit/mL 3-04 units ity of injection 00:00: every AM [place] 00 and 11 Medical units Branch every 9 PM insulin Yes Inject 14 Univers regular 3-04 units ity of human 100 00:00: every am [place] unit/mL 00 and 11 Medical injection units Branch every PM insulin NPH 0 Yes Inject 28 Univers 100 unit/mL 3-04 units ity of injection 00:00: every AM [place] 00 and 11 Medical units Branch every 9 PM insulin 0 Yes Inject 14 Univers regular 3-04 units ity of human 100 00:00: every am [place] unit/mL 00 and 11 Medical injection units Branch every PM insulin NPH 0 Yes Inject 28 [facility] 100 unit/mL 3-04 units ity of injection 00:00: every AM [place] 00 and 11 Medical units Branch every 9 PM insulin 0 Yes Inject 14 [facility] regular 3-04 units ity of human 100 00:00: every am [place] unit/mL 00 and 11 Medical injection units Branch every PM insulin NPH 0 Yes Inject 28 [facility] 100 unit/mL 3-04 units ity of injection 00:00: every AM [place] 00 and 11 Medical units Branch every 9 PM insulin 0 Yes Inject 14 [facility] regular 3-04 units ity of human 100 00:00: every am [place] unit/mL 00 and 11 Medical injection units Branch every PM insulin NPH 0 Yes Inject 28 [facility] 100 unit/mL 3-04 units ity of injection 00:00: every AM [place] 00 and 11 Medical units Branch every 9 PM insulin 2021- No [id number] Inject 14 Univers regular 3-04 04-19 units ity of human 100 00:00: 00:00 every am [place] unit/mL 00 :00 and 11 Medical injection units Branch every PM insulin NPH 2021- No [id number] Inject 28 Univers 100 unit/mL 3-04 04-19 units ity of injection 00:00: 00:00 every AM [place] as 00 :00 and 11 Medical units Branch every 9 PM HUMALOG 100 2021- No 22U 22 Units U nivers unit/mL 04-06-04 before ity of solution 00:00: 00:00 meals. [place] 00 :00 Medical Branch LEVEMIR 2021- No INJECT 50 Univ ers FLEXTOUCH 04-06- UNITS ity of 100 unit/mL 00:00: 00:00 SUBCUTANEO [place] (3 mL) 00 :00 USLY ONCE Medical injection A DAY Branch BEFORE BEDTIME MEAL ramipril 5 2021- No TAKE ONE Un bart mg capsule 16 -25 CAPSULE BY it y of 00:00: 00:00 MOUTH ONCE [place] 00 :00 A DAY Medical Branch fenofibrate 2021- No TAKE 1 Uni vers 145 mg -16 -25 TABLET BY ity of tablet 00:00: 00:00 MOUTH ONCE [place] 00 :00 A WITH Medical FOOD Branch TRULICITY 2021- No INJECT 1 Uni vers 1.5 mg/0.5 -16 -25 SYRINGE ity o f mL PnIj 00:00: 00:00 SUBCUTANEO [place] 00 :00 USLY ONCE Medical A WEEK ON Branch THE SAME DAY atorvastati 2021- No 20mg Take 20 mg Univers n 20 mg -27 -25 by mouth ity of tablet 00:00: 00:00 daily. [place] 00 :00 Medical Branch Ramipril Ramipril Yes Luis F [address] [facility] Atorvastati Atorvastati Yes Luis F [address] [facility] Synjardy Synjardy Yes Luis F take [address] [facility] tablet by [facility] - mouth [facility] twice a l day with Outpati meals ent Clinics BD Pen BD Pen Yes Luis F [address] [facility] Needle [facility] needle [facility] - Short U/F Short U/F [facility] Fenofibrate Fenofibrate Yes Luis F [address] [facility] Tresiba Tresiba Yes Luis F inject [address] FlexTouch FlexTouch [facility] units [facility] Victoza Victoza Yes Luis F INJECT 1.[address] [facility] ONCE [facility] - A DAY ONCE [facility] A DAY l [facility]pat[facility]ics Immunizations Ordered Filled Immunization Date Status Comments Sour e Immunization Name Name HPV9 2022-03-08 Completed [facility] 00[facility]: [facility] HPV9 2022-03-08 Completed [facility] 00:00:00 [facility] HPV9 2022-03-08 Completed [facility] 00:00:00 [facility] HPV9 2022-03-08 Completed [facility] 00:00:00 [facility] HPV9 2022-03-08 Completed [facility] 00:00:00 [facility] HPV9 2022-03-08 Completed [facility] 00:00:00 [facility] HPV9 2022-03-08 Completed [facility] 00:00:00 [facility] HPV9 2022-03-08 Completed [facility] 00:00:00 [facility] HPV9 2022-03-08 Completed [facility] 00:00:00 [facility] TDAP 2022-03-01 Completed [facility] 00:00:00 [facility] TDAP 2022-03-01 Completed [facility] 00:00:00 [facility] TDAP 2022-03-01 Completed [facility] 00:00:00 [facility] TDAP 2022-03-01 Completed [facility] 00:00:00 [facility] TDAP 2022-03-01 Completed [facility] 00:00:00 [facility] TDAP 2022-03-01 Completed [facility] 00:00:00 [facility] TDAP 2022-03-01 Completed [facility] 00:00:00 [facility] TDAP 2022-03-01 Completed [facility] 00:00:00 [facility] TDAP 2022-03-01 Completed [facility] 00:00:00 [facility] TDAP 2022-03-01 Completed [facility] 00:00:00 [facility] TDAP 2022-03-01 Completed [facility] 00:00:00 [facility] Influenza Virus 2021-10-21 Completed Universit y of Vaccine 00:00:00 [facility] Influenza Virus 2021-10-21 Completed Universit y of Vaccine 00:00:00 [facility] Influenza Virus 2021-10-21 Completed Universit y of Vaccine 00:00:00 [facility] Influenza Virus 2021-10-21 Completed Universit y of Vaccine 00:00:00 [facility] Influenza Virus 2021-10-21 Completed Universit y of Vaccine 00:00:00 [facility] Influenza Virus 2021-10-21 Completed Universit y of Vaccine 00:00:00 [facility] Influenza Virus 2021-10-21 Completed Universit y of Vaccine 00:00:00 [facility] Influenza Virus 2021-10-21 Completed Universit y of Vaccine 00:00:00 [facility] Influenza Virus 2021-10-21 Completed Universit y of Vaccine 00:00:00 [facility] Influenza Virus 2021-10-21 Completed Universit y of Vaccine 00:00:00 [facility] Influenza Virus 2021-10-21 Completed Universit y of Vaccine 00:00:00 [facility] Influenza Virus 2021-10-21 Completed Universit y of Vaccine 00:00:00 [facility] Influenza Virus 2021-10-21 Completed Universit y of Vaccine 00:00:00 [facility] Influenza Virus 2021-10-21 Completed Universit y of Vaccine 00:00:00 [facility] Influenza Virus 2021-10-21 Completed Universit y of Vaccine 00:00:00 [facility] Influenza Virus 2021-10-21 Completed Universit y of Vaccine 00:00:00 [facility] Influenza Virus 2021-10-21 Completed Universit y of Vaccine 00:00:00 [facility] Influenza Virus 2021-10-21 Completed Universit y of Vaccine 00:00:00 [facility] Afluria single dose Afluria single dose 2019-09-[address] [facility] Vital Signs Vital Name Observation Time Observation Value Comments Source Systolic blood 2022-03-20 16:29:00 118 mm[Hg] Univer sity of pressure [facility] Diastolic blood 2022-03-20 16:29:00 86 mm[Hg] Unive rsity of pressure [facility] Heart rate 2022-03-20 16:29:00 85 /min [facility] Body temperature 2022-03-20 16:29:00 36.72 Sheila [facility] ers[facility] Respiratory rate 2022-03-20 16:29:00 18 /min [facility] Body height 2022-03-20 16:29:00 165.1 cm [facility] Body weight 2022-03-20 16:29:00 75.07 kg [facility] BMI 2022-03-20 16:29:00 27.54 kg/m2 [facility] Systolic blood 2022-03-10 16:00:00 126 mm[Hg] Univer sity of pressure [facility] Diastolic blood 2022-03-10 16:00:00 85 mm[Hg] Unive rsity of [facility] Branch Body temperature 2022-03-10 16:00:00 36.39 Sheila [facility] Respiratory rate 2022-03-10 16:00:00 18 /min Univ [facility] Oxygen saturation in 2022-03-10 16:00:00 99 /min University Arterial blood by [facility] Pulse oximetry Branch Heart rate 2022-03-10 12:41:00 95 /min [facility] Body height 2022-02-28 12:35:00 165.1 cm [facility] Body weight 2022-02-28 12:35:00 82.101 kg [facility] BMI 2022-02-28 12:35:00 30.12 kg/m2 [facility] Systolic blood 2022-03-07 07:22:00 142 mm[Hg] Univer sity of pressure [facility] Diastolic blood 2022-03-07 07:22:00 69 mm[Hg] Unive rsity of pressure [facility] Heart rate 2022-03-07 07:22:00 108 /min [facility] Respiratory rate 2022-03-07 07:22:00 19 /min Univ [facility] Oxygen saturation in 2022-03-07 07:22:00 100 /min University of Arterial blood by [facility] Pulse oximetry [place] Body temperature 2022-03-07 07:14:00 38.72 Sheila Univ ersity of [facility] Body height 2022-02-28 12:35:00 165.1 cm Universi ty of [facility] Body weight 2022-02-28 12:35:00 82.101 kg Universi ty of [facility] BMI 2022-02-28 12:35:00 30.12 kg/m2 Universi ty of [facility] Systolic blood 2022-02-20 14:10:00 124 mm[Hg] Univer sity of pressure [facility] Diastolic blood 2022-02-20 14:10:00 84 mm[Hg] Unive rsity of pressure [facility] Heart rate 2022-02-20 14:10:00 104 /min Universi ty of [facility] Body temperature 2022-02-20 14:10:00 36.89 Sheila Univ ersity of [facility] Respiratory rate 2022-02-20 14:10:00 19 /min Univ ersity of [facility] Body height 2022-02-20 14:10:00 165.1 cm Universi ty of [facility] Body weight 2022-02-20 14:10:00 80.797 kg Universi ty of [facility] BMI 2022-02-20 14:10:00 29.64 kg/m2 Universi ty of [facility] Systolic blood 2022-02-13 16:48:00 128 mm[Hg] Univer sity of pressure [facility] Diastolic blood 2022-02-13 16:48:00 81 mm[Hg] Unive rsity of pressure [facility] Heart rate 2022-02-13 16:48:00 108 /min Universi ty of [facility] Body temperature 2022-02-13 16:48:00 36.89 Sheila Univ ersity of [facility] Respiratory rate 2022-02-13 16:48:00 20 /min Univ ersity of [facility] Body height 2022-02-13 16:48:00 165.1 cm Universi ty of [facility] Body weight 2022-02-13 16:48:00 80.604 kg Universi ty of [facility] BMI 2022-02-13 16:48:00 29.57 kg/m2 Universi ty of [facility] Oxygen saturation in 2022-02-13 16:48:00 98 /min [facility] Arterial blood by [facility] Pulse oximetry Branch Systolic blood 2022-02-06 14:13:00 118 mm[Hg] Univer sity of pressure [facility] Diastolic blood 2022-02-06 14:13:00 80 mm[Hg] Unive rsity of [facility] Heart rate 2022-02-06 14:13:00 88 /min Universi ty of [facility] Body temperature 2022-02-06 14:13:00 36.5 Sheila [facility] Respiratory rate 2022-02-06 14:13:00 18 /min [facility] Body height 2022-02-06 14:13:00 165.1 cm Universi ty of [facility] Body weight 2022-02-06 14:13:00 80.831 kg Universi ty of [facility] BMI 2022-02-06 14:13:00 29.65 kg/m2 Universi ty of [facility] Systolic blood 2022-01-16 15:20:00 127 mm[Hg] Univer sity of [facility] Diastolic blood 2022-01-16 15:20:00 80 mm[Hg] Unive rsity of [facility] Heart rate 2022-01-16 15:20:00 98 /min Universi ty of [facility] Body temperature 2022-01-16 15:20:00 36.72 Sheila [facility] 2022-01-16 15:20:00 18 /min [facility] Body height 2022-01-16 15:20:00 165.1 cm Universi ty of [facility] Body weight 2022-01-16 15:20:00 80.922 kg Universi ty of [facility] BMI 2022-01-16 15:20:00 29.69 kg/m2 Universi [facility] Procedures Procedure Date / Time Performing Clinician Source Performed EXTERNAL PROVIDER RECORDS 2022-03-18 05:01:00 Doctor Unassigned, No [facility] POCT GLUCOSE (AUTOMATED) 2022-03-10 16:00:00 [facility]ómez [facility]intero [facility]SE (AUTOMATED) 2022-03-10 01:06:00 LeonGómez ann niversity of [facility] POCT GLUCOSE (AUTOMATED) 2022-03-09 22:50:00 LeonGómez ann U niversity of [facility] POCT GLUCOSE (AUTOMATED) 2022-03-09 22:50:00 [facility] POCT GLUCOSE (AUTOMATED) 2022-03-09 15:52:00 LeonGómez ann niversity of [facility] POCT GLUCOSE (AUTOMATED) 2022-03-09 15:52:00 [facility] POCT GLUCOSE (AUTOMATED) 2022-03-09 13:09:00 [facility]z [facility] POCT GLUCOSE (AUTOMATED) 2022-03-09 13:09:00 Gómez Quintero U niversity of [facility] POCT GLUCOSE (AUTOMATED) 2022-03-09 01:35:00 LeonGómez ann U niversity of [facility] POCT GLUCOSE (AUTOMATED) 2022-03-09 01:35:00 LeonGómez ann U niversity of [facility] POCT GLUCOSE (AUTOMATED) 2022-03-09 01:03:00 Gómez Quintero niversity of [facility] POCT GLUCOSE (AUTOMATED) 2022-03-09 01:03:00 Gómez Quintero niversity of [facility] POCT GLUCOSE (AUTOMATED) 2022-03-08 22:47:00 Gómez Quintero U niversity of [facility] POCT GLUCOSE (AUTOMATED) 2022-03-08 22:47:00 LeonGómez ann U niversity of [facility] POCT GLUCOSE (AUTOMATED) 2022-03-08 21:04:00 LeonGómez ann U niversity of [facility] POCT GLUCOSE (AUTOMATED) 2022-03-08 21:04:00 LeonGómez ann U niversity of [facility] POCT GLUCOSE (AUTOMATED) 2022-03-08 16:26:00 Gómez Quintero niversdianne [facility] POCT GLUCOSE (AUTOMATED) 2022-03-08 16:26:00 Gómez Quintero niversity [facility] POCT GLUCOSE (AUTOMATED) 2022-03-08 13:54:00 Gómez Quintero niversity [facility] POCT GLUCOSE (AUTOMATED) 2022-03-08 13:54:00 LeonGómez ann U niversdianne [facility] POCT GLUCOSE (AUTOMATED) 2022-03-08 00:56:00 LeonGómez ann U niversdianne [facility] POCT GLUCOSE (AUTOMATED) 2022-03-08 00:56:00 Gómez Quintero U niversdianne [facility] POCT GLUCOSE (AUTOMATED) 2022-03-07 21:45:00 Gómez Quintero U niversdianne [facility] POCT GLUCOSE (AUTOMATED) 2022-03-07 21:45:00 [facility] (AUTOMATED) 2022-03-07 20:13:00 Gómez Quintero U niversity [facility] POCT GLUCOSE (AUTOMATED) 2022-03-07 20:13:00 [facility]z Quintero [facility]SE (AUTOMATED) 2022-03-07 16:45:00 Gómez Quintero U niversity [facility] POCT GLUCOSE (AUTOMATED) 2022-03-07 16:45:00 [facility]ómez Quintero [facility] WITH DIFF 2022-03-07 14:16:00 [place] [facility] CBC WITH DIFF 2022-03-07 14:16:00 [place] [facility] POCT GLUCOSE (AUTOMATED) 2022-03-07 14:03:00 Gómez Quintero U niversity [facility] POCT GLUCOSE (AUTOMATED) 2022-03-07 14:03:00 LeonGómez ann U niversity [facility] POCT GLUCOSE (AUTOMATED) 2022-03-07 13:00:00 [facility]z Quintero [facility]SE (AUTOMATED) 2022-03-07 13:00:00 Gómez Quintero [facility]UCOSE (AUTOMATED) 2022-03-07 09:06:00 Gómez Quintero [facility]UCOSE (AUTOMATED) 2022-03-07 09:06:00 Gómez Quintero U [facility] VENOUS CORD GAS 2022-03-07 08:03:00 Sheela [facility] VENOUS CORD GAS 2022-03-07 08:03:00 [facility] 07:10:[facility]07 07:10:00 [facility] PO[facility] GLUCOSE (AUTOMATED) 2022-03-07 06:23:00 LeonGómez ann [facility]UCOSE (AUTOMATED) 2022-03-07 06:23:00 LeonGómez U niversity [facility] POCT GLUCOSE (AUTOMATED) 2022-03-07 00:53:00 LeonGómez U niversity [facility] POCT GLUCOSE (AUTOMATED) 2022-03-07 00:53:00 LeonGómez U niversity [facility] POCT GLUCOSE (AUTOMATED) 2022-03-06 22:12:00 LeonGómez U niversity [facility] POCT GLUCOSE (AUTOMATED) 2022-03-06 22:12:00 LeonGómez U niversity [facility] POCT GLUCOSE (AUTOMATED) 2022-03-06 20:53:00 LeonGómez U niversity [facility] POCT GLUCOSE (AUTOMATED) 2022-03-06 20:53:00 LeonGómez ann U niversity [facility] SECOND AND THIRD 2022-03-06 17:09:00 Mercedes De La [facility] TRIMESTER ULTRASOUND Medical [facility] SECOND AND THIRD 2022-03-06 17:09:00 Mercedes De La O [facility] TRIMESTER ULTRASOUND Medical [facility] POCT GLUCOSE (AUTOMATED) 2022-03-06 16:03:00 LeonGómez ann [facility] GLUCOSE (AUTOMATED) 2022-03-06 16:03:00 LeonGómez [facility] GLUCOSE (AUTOMATED) 2022-03-06 12:56:00 LeonGómez [facility] GLUCOSE (AUTOMATED) 2022-03-06 12:56:00 LeonGómez U niversity [facility] POCT GLUCOSE (AUTOMATED) 2022-03-06 06:03:00 LeonGó[facility]z [facility]UCOSE (AUTOMATED) 2022-03-06 06:03:00 LeonGómez [facility] GLUCOSE (AUTOMATED) 2022-03-06 01:13:00 LeonGómez U niversity [facility] POCT GLUCOSE (AUTOMATED) 2022-03-06 01:13:00 LeonGómez U niversity [facility] POCT GLUCOSE (AUTOMATED) 2022-03-05 22:26:00 LeonGómez U niversity [facility] POCT GLUCOSE (AUTOMATED) 2022-03-05 22:26:00 LeonGómez U niversity [facility] POCT GLUCOSE (AUTOMATED) 2022-03-05 19:49:00 LeonGómez U niversity [facility] POCT GLUCOSE (AUTOMATED) 2022-03-05 19:49:00 LeonGómez U niversity [facility] POCT GLUCOSE (AUTOMATED) 2022-03-05 16:30:00 LeonKavyas [facility]SE (AUTOMATED) 2022-03-05 16:30:00 LeonGómez ann [facility] NON-STRESS TEST 2022-03-05 16:06:22 Michelle Stewart [facility] NON-STRESS TEST 2022-03-05 16:06:22 Michelle Stewart [facility] POCT GLUCOSE (AUTOMATED) 2022-03-05 13:23:00 Gómez Quintero U [facility] POCT GLUCOSE (AUTOMATED) 2022-03-05 13:23:00 Gómez Quintero [facility] HB ABO GROUPING 2022-03-05 05:13:00 [facility] RHO (D) IMMUNE GLOBULIN 2022-03-05 05:13:00 [facility] HB ABO GROUPING 2022-03-05 05:13:00 [facility] RHO (D) IMMUNE GLOBULIN 2022-03-05 05:13:00 [facility] POCT GLUCOSE (AUTOMATED) 2022-03-05 00:04:00 Gómez Quintero [facility] POCT GLUCOSE (AUTOMATED) 2022-03-05 00:04:00 Gómez Quintero U [facility] POCT GLUCOSE (AUTOMATED) 2022-03-04 21:26:00 [facility] 2022-03-04 21:26:00 [facility]ATED) 2022-03-04 19:32:00 [facility]SE (AUTOMATED) 2022-03-04 19:32:00 [facility]z Quintero [facility] GLUCOSE (AUTOMATED) 2022-03-04 16:19:00 [facility]z Quintero [facility] GLUCOSE (AUTOMATED) 2022-03-04 16:19:00 [facility]z Quintero [facility] GLUCOSE (AUTOMATED) 2022-03-04 13:40:00 [facility] Quintero [facility] GLUCOSE (AUTOMATED) 2022-03-04 13:40:00 [facility]z Quintero [facility] GLUCOSE (AUTOMATED) 2022-03-04 01:58:00 LeonGómez ann [facility] GLUCOSE (AUTOMATED) 2022-03-04 01:58:00 LeonGómez ann [facility] GLUCOSE (AUTOMATED) 2022-03-04 00:38:00 LeonGómez ann [facility] GLUCOSE (AUTOMATED) 2022-03-04 00:38:00 LeonGómez ann U niversity [facility] POCT GLUCOSE (AUTOMATED) 2022-03-03 22:45:00 LeonGómez ann U niversity [facility] POCT GLUCOSE (AUTOMATED) 2022-03-03 22:45:00 [facility]z [facility] GLUCOSE (AUTOMATED) 2022-03-03 20:08:00 [facility]z Quintero [facility] PO[facility] GLUCOSE (AUTOMATED) 2022-03-03 20:08:00 Gómez Quintero U [facility] NON-STRESS TEST 2022-03-03 16:12:33 Pat [facility] NON-STRESS TEST 2022-03-03 16:12:33 Pat [facility] POCT GLUCOSE (AUTOMATED) 2022-03-03 14:09:00 [facility]z Quintero [facility] GLUCOSE (AUTOMATED) 2022-03-03 14:09:00 LeonGómez ann [facility] PO[facility] GLUCOSE (AUTOMATED) 2022-03-03 01:24:00 LeonGómez ann U niversity [facility] POCT GLUCOSE (AUTOMATED) 2022-03-03 01:24:00 LeonGómez ann U niversity [facility] POCT GLUCOSE (AUTOMATED) 2022-03-02 22:37:00 [facility]Gómez ann [facility] GLUCOSE (AUTOMATED) 2022-03-02 22:37:00 LeonGómez ann niversity of [facility] POCT GLUCOSE (AUTOMATED) 2022-03-02 21:03:00 LeonGómez ann U niversity of [facility] POCT GLUCOSE (AUTOMATED) 2022-03-02 21:03:00 LeonGómez ann U niversity of [facility] POCT GLUCOSE (AUTOMATED) 2022-03-02 19:57:00 LeonGómez ann U niversity of [facility] POCT GLUCOSE (AUTOMATED) 2022-03-02 19:57:00 LeonGómez ann U niversity of [facility] POCT GLUCOSE (AUTOMATED) 2022-03-02 18:58:00 LeonGómez ann U niversity of [facility] POCT GLUCOSE (AUTOMATED) 2022-03-02 18:58:00 LeonGómez ann U niversity of [facility] POCT GLUCOSE (AUTOMATED) 2022-03-02 18:01:00 LeonGómez ann U niversity of [facility] POCT GLUCOSE (AUTOMATED) 2022-03-02 18:01:00 LeonGómez ann U niversity of [facility] POCT GLUCOSE (AUTOMATED) 2022-03-02 16:57:00 LeonGómez ann U niversity of [facility] POCT GLUCOSE (AUTOMATED) 2022-03-02 16:57:00 LeonGómez ann U niversity of [facility] POCT GLUCOSE (AUTOMATED) 2022-03-02 15:53:00 LeonGómez ann U niversity of [facility] POCT GLUCOSE (AUTOMATED) 2022-03-02 15:53:00 LeonGómez ann U niversity of [facility] POCT GLUCOSE (AUTOMATED) 2022-03-02 13:28:00 LeonGómez ann U niversity of [facility] POCT GLUCOSE (AUTOMATED) 2022-03-02 13:28:00 LeonGómez ann U niversity of [facility] POCT GLUCOSE (AUTOMATED) 2022-03-02 12:34:00 Gómez Quintero niversity of [facility] POCT GLUCOSE (AUTOMATED) 2022-03-02 12:34:00 LeonGómez ann U niversity of [facility] POCT GLUCOSE (AUTOMATED) 2022-03-02 11:28:00 Gómez Quintero U niversity of [facility] POCT GLUCOSE (AUTOMATED) 2022-03-02 11:28:00 LeonGómez ann U niversity of [facility] POCT GLUCOSE (AUTOMATED) 2022-03-02 10:34:00 LeonGómez ann U niversity of [facility] POCT GLUCOSE (AUTOMATED) 2022-03-02 10:34:00 LeonGómez ann U niversity of [facility] POCT GLUCOSE (AUTOMATED) 2022-03-02 08:21:00 LeonGómez ann U niversity of [facility] POCT GLUCOSE (AUTOMATED) 2022-03-02 08:21:00 Gómez Quintero U niversity of [facility] [facility] POCT GLUCOSE (AUTOMATED) 2022-03-02 06:39:00 LeonGómez ann U niversity of [facility] POCT GLUCOSE (AUTOMATED) 2022-03-02 06:39:00 LeonGómez ann U niversity of [facility] POCT GLUCOSE (AUTOMATED) 2022-03-02 05:35:00 LeonGómez ann U niversity of [facility] POCT GLUCOSE (AUTOMATED) 2022-03-02 05:35:00 Gómez Quintero U niversity of [facility] POCT GLUCOSE (AUTOMATED) 2022-03-02 01:34:00 LeonGómez ann U niversity of [facility] POCT GLUCOSE (AUTOMATED) 2022-03-02 01:34:00 LeonGómez ann U niversity of [facility] POCT GLUCOSE (AUTOMATED) 2022-03-01 23:34:00 LeonGómez ann U niversity of [facility] POCT GLUCOSE (AUTOMATED) 2022-03-01 23:34:00 LeonGómez ann U niversity of [facility] POCT GLUCOSE (AUTOMATED) 2022-03-01 22:36:00 LeonGómez U niversity of [facility] POCT GLUCOSE (AUTOMATED) 2022-03-01 22:36:00 LeonGómez U niversity of [facility] POCT GLUCOSE (AUTOMATED) 2022-03-01 21:36:00 LeonKavyas U niversity of [facility] POCT GLUCOSE (AUTOMATED) 2022-03-01 21:36:00 LeonGómez U niversity of [facility] POCT GLUCOSE (AUTOMATED) 2022-03-01 20:32:00 LeonGómez U niversity of [facility] POCT GLUCOSE (AUTOMATED) 2022-03-01 20:32:00 LeonKavyas U niversity of [facility] POCT GLUCOSE (AUTOMATED) 2022-03-01 19:36:00 LeonKavyas U niversity of [facility] POCT GLUCOSE (AUTOMATED) 2022-03-01 19:36:00 LeonKavyas U niversity of [facility] POCT GLUCOSE (AUTOMATED) 2022-03-01 18:36:00 LeonKavyas [facility] niversity of [facility] POCT GLUCOSE (AUTOMATED) 2022-03-01 18:36:00 LeonKavyas [facility] n[facility] of [facility] POCT GLUCOSE (AUTOMATED) 2022-03-01 17:33:00 LeonGómez [facility] niversity of [facility] POCT GLUCOSE (AUTOMATED) 2022-03-01 17:33:00 LeonKavyas U niversity of [facility] POCT GLUCOSE (AUTOMATED) 2022-03-01 16:38:00 LeonKavyas [facility] n[facility] of [facility] POCT GLUCOSE (AUTOMATED) 2022-03-01 16:38:00 Leon Gómez U n[facility] of [facility] POCT GLUCOSE (AUTOMATED) 2022-03-01 15:36:00 LeonHaroldoGómez U niversity of [facility] POCT GLUCOSE (AUTOMATED) 2022-03-01 15:36:00 [facility]z [facility] / [facility]R 2022-03-01 15:23:00 David [facility]IV[facility] PARTIAL 2022-03-01 15:23:00 Hernandez [facility] FIBRINOGEN 2022-03-01 15:23:00 Hernandez [facility] PROTHROMBIN TIME / INR 2022-03-01 15:23:00 David [facility] 2022-03-01 15:23:00 David [facility] FIBRINOGEN 2022-03-01 15:23:00 Hernandez [facility] POCT GLUCOSE (AUTOMATED) 2022-03-01 14:29:00 [facility]z Quintero [facility]SE (AUTOMATED) 2022-03-01 14:29:00 Gómez Quintero [facility]SE (AUTOMATED) 2022-03-01 13:35:00 LeonGómez ann U niversity [facility] POCT GLUCOSE (AUTOMATED) 2022-03-01 13:35:00 LeonGómez ann U niversity [facility] POCT GLUCOSE (AUTOMATED) 2022-03-01 12:34:00 [facility]z [facility]intero [facility]SE (AUTOMATED) 2022-03-01 12:34:00 [facility]ómez Quintero [facility] WITH DIFF 2022-03-01 11:31:00 David [facility] CBC WITH DIFF 2022-03-01 11:31:00 David [facility] POCT GLUCOSE (AUTOMATED) 2022-03-01 11:01:00 LeonGómez ann U niversity [facility] POCT GLUCOSE (AUTOMATED) 2022-03-01 11:01:00 Gómez Quintero U niversity [facility] POCT GLUCOSE (AUTOMATED) 2022-03-01 10:02:00 LeonGómez ann U niversity [facility] POCT GLUCOSE (AUTOMATED) 2022-03-01 10:02:00 Gómez Quintero [facility] POCT GLUCOSE (AUTOMATED) 2022-03-01 09:06:00 Gómez Quintero [facility] POCT GLUCOSE (AUTOMATED) 2022-03-01 09:06:00 Gómez Quintero [facility] POCT GLUCOSE (AUTOMATED) 2022-03-01 07:50:00 Gómez Quintero [facility] POCT GLUCOSE (AUTOMATED) 2022-03-01 07:50:00 Gómez Quintero [facility] CBC WITH DIFF 2022-03-01 06:54:00 David [facility] PROTHROMBIN TIME / INR 2022-03-01 06:54:00 David [facility] ACTIVATED PARTIAL 2022-03-01 06:54:00 David [facility] FIBRINOGEN 2022-03-01 06:54:00 David [facility] CBC WITH DIFF 2022-03-01 06:54:00 David [facility] PROTHROMBIN TIME / INR 2022-03-01 06:54:00 David [facility] ACTIVATED PARTIAL 2022-03-01 06:54:00 David [facility] FIBRINOGEN 2022-03-01 06:54:00 David [facility] POCT GLUCOSE (AUTOMATED) 2022-03-01 04:33:00 Gómez Quintero [facility] POCT GLUCOSE (AUTOMATED) 2022-03-01 04:33:00 Gómez Quintero [facility] POCT GLUCOSE (AUTOMATED) 2022-02-28 23:42:00 Gómez Quintero [facility] POCT GLUCOSE (AUTOMATED) 2022-02-28 23:42:00 Gómez Quintero [facility] CBC WITH DIFF 2022-02-28 22:16:00 Michelle Stewart [facility] CBC WITH DIFF 2022-02-28 22:16:00 Michelle Stewart [facility] HEPATITIS B SURFACE 2022-02-28 14:57:00 Lizeth [facility] ANTIGEN [facility] GALV ONLY - SYPHILIS 2022-02-28 14:57:[address] [facility] IGG/IGM [facility] HEPATITIS B SURFACE 2022-02-28 14:57:00 Lizeth [facility] ANTIGEN [facility] GALV ONLY - SYPHILIS 2022-02-28 14:57:[address] [facility] IGG/IGM [facility] HB ABO GROUPING 2022-02-28 14:56:00 Lizeth [facility] HB ABO GROUPING 2022-02-28 14:56:00 Lizeth [facility] GC & CHLAMYDIA AMPLIFIED 2022-02-28 14:02:00 David [facility] GROUP B STREPTOCOCCUS BY 2022-02-28 14:02:00 David [facility] PCR [facility] GC & CHLAMYDIA AMPLIFIED 2022-02-28 14:02:00 David [facility] GROUP B STREPTOCOCCUS BY 2022-02-28 14:02:00 David [facility] URINALYSIS 2022-02-28 12:56:00 David [facility] URINE CULTURE 2022-02-28 12:56:00 David [facility] URINALYSIS 2022-02-28 12:56:00 David [facility] URINE CULTURE 2022-02-28 12:56:00 David [facility] COVID-19 (ID NOW RAPID 2022-02-28 12:32:00 Gómez Quintero [facility] TESTING) Medical [facility] LAB ONLY COVID 2022-02-28 12:32:00 Gómez Quintero [facility] INTERPRETATION [facility] COVID-19 (ID NOW RAPID 2022-02-28 12:32:00 Gómez Quintero [facility] TESTING) [facility] LAB ONLY COVID 2022-02-28 12:32:00 Gómez Quintero [facility] INTERPRETATION [facility] HOSPITAL ADMISSION 2022-02-28 05:01:00 Doctor Unassigned, No Uni versity of [facility] HOSPITAL ADMISSION 2022-02-28 05:01:00 Doctor Unassigned, No Uni versity of [facility] POCT URINALYSIS W/O 2022-02-20 14:12:00 Mragaret [facility] SPECIFIC [facility] POCT URINALYSIS W/O 2022-02-13 16:52:00 Margaret [facility] POCT URINALYSIS W/O 2022-02-06 14:23:00 Margaret [facility] COMP. METABOLIC PANEL 2022-01-23 16:16:00 Margaret Issa [facility] ([id number]) [facility] POCT URINALYSIS W/O 2022-01-16 15:51:00 Margaret [facility] Encounters Start End Encounter Admission Attending Care Care Encounter Source Date/Time Date/Time Type Type Clinicians Facility Department ID 2021-12-17 Outpatient Dorsey, [facility] 13:53:56 Luis F [id number] [facility] 2021-12-17 Outpatient Dorsey, [facility] 13:38:12 Luis F 08544 [facility] 2021-12-17 Out[facility] Dorsey, [facility] [id number] 12:45:24 Luis F 59548 [facility] 2021-12-17 Outpatient Dorsey, [facility] [id number] 12:32:49 Luis F 70982 [facility] 2021-12-17 Outpatient Dorsey, [facility] [id number] 12:31:47 Luis F 27246 [facility] 2021-12-17 Outpatient Dorsey, [facility] [id number] 12:29:44 Luis F 70280 [facility] 2021-12-17 Outpatient Dorsey, [facility] [id number] 11:16:24 Luis F 62437 [facility] 2021-12-17 Outpatient Dorsey, [facility] [id number] 11:06:41 Luis F 35334 [facility] 2021-12-17 Outpatient Dorsey, [facility] [id number] 11:06:11 Luis F 14121 [facility] 2022-04-10 2022-04-10 Outpatient R ISSA ROBLES [facility] [id number] Univers 11:15:00 11:15:00 [id number] ity [facility] 2022-04-10 2022-04-10 Outpatient R ISSA ROBLES [facility] [id number] Univers 11:15:00 11:15:00 ity [facility] 2022-03-27 2022-03-27 Outpatient R LUIS CARLOS LOPEZ [facility] B [id number] Univers 11:15:00 11:15:00 [facility] 2022-03-27 2022-03-27 Outpatient R ISSA ROBLES [facility] [id number] Univers 09:30:00 09:30:00 [id number] ity [facility] 2022-03-27 2022-03-27 Outpatient R [facility] [id number] Univers 09:30:00 09:30:00 ity [facility] 2022-03-26 2022-03-26 [facility] 1.2.840.114 [id number] Univers 00:00:00 00:00:00 Rickie TURNER 350.1.13.10 it y of WOMEN'S 4.2.7.2.686 [facility] [id number] [address] 2022-03-26 2022-03-26 1.2.840.1 1.2.840.114 [id number] Univers 00:00:00 00:00:00 Encounter [id number] 350.1.13.10 ity of 3[place]104.2[place]7 [place][id number] 570 [facility] 2022-03-25 2022-03-25 Telephone Issa Robles [facility] 1.2.840.114 [id number] Univers 00:00:00 00:00:00 Cam JOHNNY 350.1.13.10 it y of WOMENS 4.2.7.2.686 [facility] [id number] [address] 2022-03-20 2022-03-20 Outpatient R [facility] [id number] Univers 11:15:00 11:47:25 ity of [facility] 2022-03-20 2022-03-20 Routine Margaret [facility] 1.2.840.114 [id number] Univers 11:15:00 11:47:25 Rickie JOHNNY 350.1.13.10 i ty of Visit WOMEN'S 4.2.7.2.686 [facility] [id number] [address] 2022-03-20 2022-03-20 Outpatient R [facility] [id number] Univers 11:15:00 11:15:00 [id number] ity of [facility] 2022-03-18 2022-03-18 Orders Doctor CECILIA 1.2.840.114 [id number] Univers 00:00:00 00:00:00 Only Unassigned, MONA 350.1.13.10 ity of [place] [facility] 4.2.7.2.686 Amador as [id number] [address] 2022-03-18 2022-03-18 1.2.840.1 1.2.840.114 [id number] Univers 00:00:00 00:00:00 Encounter [id number] 350.1.13.10 ity of 3[place]104.2[place]7 [place]2.180409 570 [facility] 2022-03-17 2022-03-17 1.2.840.1 1.2.840.114 [id number] Univers 00:00:00 00:00:00 Encounter [id number] 350.1.13.10 ity of 3.104.2.7 [place][id number] [address] [facility] [place] 2022-03-11 2022-03-11 Outpatient R [facility] [id number] Univers 10:00:00 10:00:00 [id number] ity of [facility] 2022-03-11 2022-03-11 Outpatient P [facility] [id number] Univers 10:00:00 10:00:00 ity of [facility] 2022-02-28 2022-03-10 Inpatient P LEON [facility] KATIE [id number] Univers 07:12:00 16:00:00 GÓMEZ dean o f [facility] 2022-02-28 2022-03-10 [facility] Gloria Vasquez 1.2.840.11 [id number] Univers 07:12:00 16:00:00 Encounter Gómez Quintero 350.1.13.1 0 ity of [facility] 4.2.7.2.686 Amador as [id number] [facility] [address] 2022-03-07 2022-03-07 Surgery CECILIA Coker 1.2.374.598 [id number] Univers 01:20:00 03:01:00 Allie GUERRAY 350.1.13.10 it y of [facility] 4.2.7.2.686 Amador as [id number] [facility] [address] 2022-03-06 2022-03-06 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 3, [facility] Room UNIVERSIT 1 .2.840.114 [id number] Univers 10:45:00 12:23:50 Visit Issa Robles [facility] 350.1.13.10 ity of Dee DeeShar brown [facility] 4.2.7.2.686 [place] [id number] [facility] [address] 2022-03-01 2022-03-01 Anesthesia CECILIA Retana 1.2.840.114 [id number] Univers 09:06:42 09:06:42 Event Tewfeek MONA 350.1.13.10 it y of [facility] 4.2.7.2.686 Amador as [id number] [facility] [address] 2022-02-27 2022-02-27 Outpatient R [facility] [id number] Univers 11:30:00 11:30:00 [id number] ity [facility] 2022-02-27 2022-02-27 Outpatient R [facility] [id number] Univers 11:30:00 11:30:00 ity [facility] 2022-02-20 2022-02-20 Outpatient R [facility] [id number] Univers 09:15:00 09:30:45 ity [facility] 2022-02-20 2022-02-20 Routine Margaret [facility] 1.2.840.114 [id number] Univers 09:15:00 09:30:45 Cam JOHNNY 350.1.13.10 i ty of [facility] [place] [id number] [facility] [address] 2022-02-20 2022-02-20 Outpatient R [facility] [id number] Univers 09:15:00 09:15:00 [id number] ity [facility] 2022-02-18 2022-02-18 Outpatient R [facility] [id number] Univers 09:00:00 10:10:20 ity [facility] 2022-02-18 2022-02-18 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 Lab, Mnafred - Geovanny [facility] 1.2.840.1 [id number] Univers 09:00:00 09:15:00 Visit Issa Robles [facility] 350.1.13.10 ity [facility] 4.2.7.2.686 Amador as PORSCHE?BLEA [id number] [address] MEDICAL OFFICE BUILDING 2022-02-18 2022-02-18 Outpatient R [facility] [id number] Univers 09:00:00 09:00:00 [id number] ity [facility] 2022-02-13 2022-02-13 Outpatient R [facility] [id number] Univers 11:30:00 12:05:29 ity [facility] 2022-02-13 2022-02-13 Routine Issa Robles NCALBER DIAZ 1.2.840.114 [id number] Univers 11:30:00 12:05:29 Rickie TURNER 350.1.13.10 i ty of Visit [place] [id number] [address] 2022-02-13 2022-02-13 Outpatient R [facility] [id number] Univers 11:30:00 11:30:00 [id number] [facility] 2022-02-11 2022-02-11 Outpatient R [facility] [id number] Univers 13:30:00 13:30:00 [id number] [facility] 2022-02-09 2022-02-09 Outpatient R MERCEDES DE LA O [facility] [id number] Univers 09:00:00 13:22:01 MERCEDES DE LA O [facility] 2022-02-09 2022-02-09 Telemedici Faculty, Manfred [facility] 1.2.840.114 [id number] Univers 09:00:00 09:30:00 ne Visit Mercedes De LaO COGNOS ANALYST 350.1.13.10 ity [facility] 4.2.7.2.686 Amador as MATERNAL [id number] [facility] ical & CHILD [address] [place] [address] 2022-02-06 2022-02-06 Outpatient R [facility] [id number] Univers 09:00:00 09:47:37 ity [facility] 2022-02-06 2022-02-06 Routine Issa Robles [facility] JOE 1.2.840.114 [id number] Univers 09:00:00 09:47:37 Rickie TURNER 350.1.13.10 i ty of Visit [place] [id number] [address] 2022-01-23 2022-01-23 Outpatient R [facility] [id number] Univers 11:30:00 12:45:07 [facility] 2022-01-21 2022-01-21 Outpatient R ISSA ROBLES [facility] [id number] Univers 15:00:00 15:05:49 [facility] 2022-01-16 2022-01-16 Initial Issa Robles NCALBER DIAZ 1.2.840.114 [id number] Univers 09:00:00 09:30:00 Cam JOHNNY 350.1.13.10 i ty of Visit WOMEN'S 4.2.7.2.686 [facility] [id number] [place] [address] [address] 2022-01-16 2022-01-16 Outpatient R ISSA ROBLES [facility] [id number] Univers 09:00:00 09:00:00 [facility] 2022-01-02 2022-01-02 Outpatient ISSA SARMIENTO [facility] [id number] Univers 12:00:00 12:00:00 [facility] 2021-08-21 2021-08-21 Outpatient [facility] [id number] [facility] 2021-07-10 2021-07-10 Outpatient [facility] [id number] [facility] 2021-02-18 2021-02-18 Outpatient [facility] [id number] [facility] 2021-02-12 2021-02-12 Outpatient [facility] [id number] [facility]00 [facility] 2020-12-11 2020-12-11 Outpatient [facility] [id number] [facility] 2020-08-09 2020-08-09 [facility] [id number] 09:27:00 09:27:00 [employer] [facility] Medicine Outpati ent Clinics 2020-08-07 2020-08-07 [facility] [id number] 16:20:00 16:20:[address] [place] [address] [place] [address] Luke [place] - Drive [facility] Medicine Medicine Outpati ent Clinics 2020-08-01 2020-08-01 [facility] [id number] 11:42:00 11:42:00 [place] ([employer]) LuMichelle [employer] s - Drive [facility] Medicine Outpati ent Clinics 2020-04-02 2020-04-02 [facility] [id number] 08:15:00 08:15:00 [place] Luke s - Drive [facility] Medicine Medicine Outpati ent Clinics 2020-01-01 2020-01-01 [facility] [id number] 10:45:00 10:45:00 [place] s - Drive [facility] Medicine Outpati ent Clinics 2019-09-29 2019-09-29 [facility] [id number] 10:30:00 10:30:00 [place] - Drive [facility] Medicine Outpati ent Clinics 2019-09-20 2019-09-20 [facility] [id number] 17:14:00 17:14:00 [place] - Drive [facility] Medicine Outpati ent Clinics 2019-08-11 2019-08-11 [facility] [id number] 14:25:00 14:25:00 [place]) LuMichelle [employer] s - Drive [facility] Medicine Outpati ent Clinics 2019-08-11 2019-08-11 [facility] [id number] 10:30:00 10:30:00 [place]) LuMichelle [employer] s - Drive [facility] Medicine Outpati ent Clinics 2019-06-28 2019-06-28 [facility] [id number] 15:45:00 15:45:00 [place]) LuMichelle [employer] s - Drive [facility] Medicine Outpati ent Clinics 2019-06-21 2019-06-21 [facility] [id number] 07:59:00 07:59:00 [place] [facility] 2019-02-21 2019-02-21 [facility] [id number] 08:00:00 08:00:00 rhona Romo [facility] ent Clinics Results Test Description Test Time Test Comments Results Result Comments Source POCT GLUCOSE (AUTOMATED) 2022-03-10 16:04:27 Test Item Value Reference Range Interpretation Comme nts POCT GLU (test code = 2929842860) 150 mg/dL 70-110 H Lab Interpretation (test code = 30276-8) [facility]normal [facility]10 01:10:00 Test Item Value Reference Range Interpretation Comments POCT GLU (test code = [id number]) 128 mg/dL 70-110 H Lab Interpretation (test code = Abnormal 17688-4) [facility]2022-03-09 22:52:17 Test Item Value Reference Range Interpretation Comments POCT GLU (test code = [id number]) 130 mg/dL 70-110 H Lab Interpretation (test code = Abnormal 92089-0) [facility]2022-03-09 22:52:17 Test Item Value Reference Range Interpretation Comments POCT GLU (test code = [id number]) 130 mg/dL 70-110 H Lab Interpretation (test code = Abnormal 96738-4) [facility]2022-03-09 15:59:29 Test Item Value Reference Range Interpretation Comments POCT GLU (test code = 5595036923) 110 mg/dL 70-110 Lab Interpretation (test code = Normal 05908-7) [facility]2022-03-09 15:59:29 Test Item Value Reference Range Interpretation Comments POCT GLU (test code = [id number]) 110 mg/dL 70-110 Lab Interpretation (test code = Normal 09698-3) [facility]PO[facility] GLUCOSE (AUTOMATED)2022-03-09 13:19:00 Test Item Value Reference Range Interpretation Comments POCT GLU (test code = [id number]) 105 mg/dL 70-110 Lab Interpretation (test code = Normal 50242-2) [facility]2022-03-09 13:19:00 Test Item Value Reference Range Interpretation Comments POCT GLU (test code = [id number]) 105 mg/dL 70-110 Lab Interpretation (test code = Normal 65619-1) [facility] GLUCOSE (AUTOMATED)2022-03-09 01:38:04 Test Item Value Reference Range Interpretation Comments POCT GLU (test code = [id number]) 188 mg/dL 70-110 H Lab Interpretation (test code = Abnormal 57107-2) [facility] GLUCOSE (AUTOMATED)2022-03-09 01:38:04 Test Item Value Reference Range Interpretation Comments POCT GLU (test code = [id number]) 188 mg/dL 70-110 H Lab Interpretation (test code = Abnormal 86546-6) [facility] GLUCOSE (AUTOMATED)2022-03-09 01:15:51 Test Item Value Reference Range Interpretation Comments POCT GLU (test code = [id number]) 209 mg/dL 70-110 H Lab Interpretation (test code = Abnormal 83603-8) [facility] GLUCOSE (AUTOMATED)2022-03-09 01:15:51 Test Item Value Reference Range Interpretation Comments POCT GLU (test code = [id number]) 209 mg/dL 70-110 H Lab Interpretation (test code = Abnormal 28592-7) [facility] GLUCOSE (AUTOMATED)2022-03-08 22:49:30 Test Item Value Reference Range Interpretation Comments POCT GLU (test code = 1383109323) 167 mg/dL 70-110 H Lab Interpretation (test code = Abnormal 60443-4) [facility] GLUCOSE (AUTOMATED)2022-03-08 22:49:30 Test Item Value Reference Range Interpretation Comments POCT GLU (test code = 1841388258) 167 mg/dL 70-110 H Lab Interpretation (test code = Abnormal 90704-6) [facility] GLUCOSE (AUTOMATED)2022-03-08 21:09:31 Test Item Value Reference Range Interpretation Comments POCT GLU (test code = 1253455834) 194 mg/dL 70-110 H Lab Interpretation (test code = Abnormal 74240-9) [facility] GLUCOSE (AUTOMATED)2022-03-08 21:09:31 Test Item Value Reference Range Interpretation Comments POCT GLU (test code = 1188205061) 194 mg/dL 70-110 H Lab Interpretation (test code = Abnormal 05956-0) [facility] GLUCOSE (AUTOMATED)2022-03-08 16:29:51 Test Item Value Reference Range Interpretation Comments POCT GLU (test code = 4428996975) 116 mg/dL 70-110 H Lab Interpretation (test code = Abnormal 15158-6) [facility] GLUCOSE (AUTOMATED)2022-03-08 16:29:51 Test Item Value Reference Range Interpretation Comments POCT GLU (test code = 1310535245) 116 mg/dL 70-110 H Lab Interpretation (test code = Abnormal 47415-7) [facility] GLUCOSE (AUTOMATED)2022-03-08 13:55:29 Test Item Value Reference Range Interpretation Comments POCT GLU (test code = 4358445996) 136 mg/dL 70-110 H Lab Interpretation (test code = Abnormal 26454-4) [facility] GLUCOSE (AUTOMATED)2022-03-08 13:55:29 Test Item Value Reference Range Interpretation Comments POCT GLU (test code = 3867400866) 136 mg/dL 70-110 H Lab Interpretation (test code = Abnormal 86481-9) [facility] GLUCOSE (AUTOMATED)2022-03-08 01:10:24 Test Item Value Reference Range Interpretation Comments POCT GLU (test code = 7242582390) 255 mg/dL 70-110 H Lab Interpretation (test code = Abnormal 74973-7) [facility] GLUCOSE (AUTOMATED)2022-03-08 01:10:24 Test Item Value Reference Range Interpretation Comments POCT GLU (test code = 1892342505) 255 mg/dL 70-110 H Lab Interpretation (test code = Abnormal 51072-4) [facility] GLUCOSE (AUTOMATED)2022-03-07 21:47:12 Test Item Value Reference Range Interpretation Comments POCT GLU (test code = 4406805976) 167 mg/dL 70-110 H Lab Interpretation (test code = Abnormal 59203-0) [facility] GLUCOSE (AUTOMATED)2022-03-07 21:47:12 Test Item Value Reference Range Interpretation Comments POCT GLU (test code = 4533487851) 167 mg/dL 70-110 H Lab Interpretation (test code = Abnormal 37614-4) [facility] GLUCOSE (AUTOMATED)2022-03-07 20:15:11 Test Item Value Reference Range Interpretation Comments POCT GLU (test code = 5356730985) 145 mg/dL 70-110 H Lab Interpretation (test code = Abnormal 85136-3) [facility] GLUCOSE (AUTOMATED)2022-03-07 20:15:11 Test Item Value Reference Range Interpretation Comments POCT GLU (test code = 9498926616) 145 mg/dL 70-110 H Lab Interpretation (test code = Abnormal 64722-0) [facility] GLUCOSE (AUTOMATED)2022-03-07 16:46:40 Test Item Value Reference Range Interpretation Comments POCT GLU (test code = 4174563366) 118 mg/dL 70-110 H Lab Interpretation (test code = Abnormal 19361-9) [facility] GLUCOSE (AUTOMATED)2022-03-07 16:46:40 Test Item Value Reference Range Interpretation Comments POCT GLU (test code = 7104004845) 118 mg/dL 70-110 H Lab Interpretation (test code = Abnormal 29079-2) [facility] WITH [id number] 14:40:49 Test Item Value Reference Range Interpretation Comments WBC (test code = See_Comment H [Automated 6690-2) message] The system which generated this result transmit lynn reference range : 4.30 - 11.10 10*3/?L. The reference range was not used to interpret this result as normal/abnormal . RBC (test code = See_Comment L [Automated 789-8) message] The system which generated this result transmit lynn reference range : 3.93 - 5.25 10*6/?L. The reference range was not used to interpret this result as normal/abnormal . HGB (test code = 11.8 g/dL 11.6-15.0 718-7) HCT (test code = 35.1 % 35.7-45.2 L 4544-3) MCV (test code = 90.7 fL 80.6-95.5 787-2) MCH (test code = 30.5 pg 25.9-32.8 785-6) MCHC (test code = 33.6 g/dL 31.6-35.1 786-4) RDW-SD (test code = 41.4 fL 39.0-49.9 66172-3) RDW-CV (test code = 12.8 % 12.0-15.5 788-0) PLT (test code = See_Comment [Automated 777-3) message] The system which generated this result transmit lynn reference range : 166 - 358 10*3/ ?L. The reference range was not u sed to interpret th is result as normal/abnormal . MPV (test code = 9.3 fL 9.5-12.9 L 99294-1) NRBC/100 WBC (test See_Comment [Automat ed code = 7504547776) message] The system which generated this result transmit lynn reference range : 0.0 - 10.0 /100 WBCs. The reference range was not used to interpret this result as normal/abnormal . NRBC x10^3 (test code <0.01 See_Comment [Auto mated = 1627612901) message] The system which generated this result transmit lynn reference range : 10*3/?L. The reference range was not used to interpret this result as normal/abnormal . GRAN MAT (NEUT) % 82.1 % (test code = 770-8) IMM GRAN % (test code 0.50 % = 2343439756) LYMPH % (test code = 9.0 % 736-9) MONO % (test code = 8.3 % 5905-5) EOS % (test code = 0.0 % 713-8) BASO % (test code = 0.1 % 706-2) GRAN MAT x10^3(ANC) 11.55 10*3/uL 1.88-7.09 H (test code = 8123011068) IMM GRAN x10^3 (test 0.07 10*3/uL 0.00-0.06 H code = 2681074247) LYMPH x10^3 (test code 1.26 10*3/uL 1.32-3.29 L = 731-0) MONO x10^3 (test code 1.16 10*3/uL 0.33-0.92 H = 742-7) EOS x10^3 (test code = <0.03 0.03-0.39 L 711-2) BASO x10^3 (test code <0.03 0.01-0.07 = 704-7) Lab Interpretation Abnormal (test code = 60860-0) [facility] WITH [id number] 14:40:49 Test Item Value Reference Range Interpretation Comments WBC (test code = See_Comment H [Automated 6690-2) message] The system which generated this result transmit lynn reference range : 4.30 - 11.10 10*3/?L. The reference range was not used to interpret this result as normal/abnormal . RBC (test code = See_Comment L [Automated 789-8) message] The system which generated this result transmit lynn reference range : 3.93 - 5.25 10*6/?L. The reference range was not used to interpret this result as normal/abnormal . HGB (test code = 11.8 g/dL 11.6-15.0 718-7) HCT (test code = 35.1 % 35.7-45.2 L 4544-3) MCV (test code = 90.7 fL 80.6-95.5 787-2) MCH (test code = 30.5 pg 25.9-32.8 785-6) MCHC (test code = 33.6 g/dL 31.6-35.1 786-4) RDW-SD (test code = 41.4 fL 39.0-49.9 40445-2) RDW-CV (test code = 12.8 % 12.0-15.5 788-0) PLT (test code = See_Comment [Automated 777-3) message] The system which generated this result transmit lynn reference range : 166 - 358 10*3/ ?L. The reference range was not u sed to interpret th is result as normal/abnormal . MPV (test code = 9.3 fL 9.5-12.9 L 91579-5) NRBC/100 WBC (test See_Comment [Automat ed code = 4596277241) message] The system which generated this result transmit lynn reference range : 0.0 - 10.0 /100 WBCs. The reference range was not used to interpret this result as normal/abnormal . NRBC x10^3 (test code <0.01 See_Comment [Auto mated = 8979575176) message] The system which generated this result transmit lynn reference range : 10*3/?L. The reference range was not used to interpret this result as normal/abnormal . GRAN MAT (NEUT) % 82.1 % (test code = 770-8) IMM GRAN % (test code 0.50 % = 8747477037) LYMPH % (test code = 9.0 % 736-9) MONO % (test code = 8.3 % 5905-5) EOS % (test code = 0.0 % 713-8) BASO % (test code = 0.1 % 706-2) GRAN MAT x10^3(ANC) 11.55 10*3/uL 1.88-7.09 H (test code = 6480951638) IMM GRAN x10^3 (test 0.07 10*3/uL 0.00-0.06 H code = 7350544466) LYMPH x10^3 (test code 1.26 10*3/uL 1.32-3.29 L = 731-0) MONO x10^3 (test code 1.16 10*3/uL 0.33-0.92 H = 742-7) EOS x10^3 (test code = <0.03 0.03-0.39 L 711-2) BASO x10^3 (test code <0.03 0.01-0.07 = 704-7) Lab Interpretation Abnormal (test code = 07124-3) [facility] GLUCOSE (AUTOMATED)2022-03-07 14:04:32 Test Item Value Reference Range Interpretation Comments POCT GLU (test code = 6019393888) 66 mg/dL 70-110 L Lab Interpretation (test code = Abnormal 29343-2) [facility] GLUCOSE (AUTOMATED)2022-03-07 14:04:32 Test Item Value Reference Range Interpretation Comments POCT GLU (test code = 0665275923) 66 mg/dL 70-110 L Lab Interpretation (test code = Abnormal 89621-2) [facility] GLUCOSE (AUTOMATED)2022-03-07 13:07:44 Test Item Value Reference Range Interpretation Comments POCT GLU (test code = 6892668532) 62 mg/dL 70-110 L Lab Interpretation (test code = Abnormal 64083-8) [facility] GLUCOSE (AUTOMATED)2022-03-07 13:07:44 Test Item Value Reference Range Interpretation Comments POCT GLU (test code = 3166863427) 62 mg/dL 70-110 L Lab Interpretation (test code = Abnormal 68504-5) [facility] (D) IMMUNE [id number] 10:43:57 Test Item Value Reference Range Interpretation Comments RHIG CANDIDATE? No- see comment Patient i s not a (test code = candidate for R hIg- 5055) Patient is Rh Positive.Perfor med at [facility] Laboratory [facility] Blood [address] Free: [phone] A No. [id number] [facility] () IMMUNE [id number] 10:43:57 Test Item Value Reference Range Interpretation Comments RHIG CANDIDATE? No- see comment Patient i s not a (test code = candidate for R hIg- 5055) Patient is Rh Positive.Perfor med at [facility] Laboratory [facility] Blood [address] [place] [address] Free: [phone] A No. [id number] [facility] GLUCOSE (AUTOMATED)2022-03-07 09:17:21 Test Item Value Reference Range Interpretation Comments POCT GLU (test code = 2470677511) 89 mg/dL 70-110 Lab Interpretation (test code = Normal 25826-1) [facility] GLUCOSE (AUTOMATED)2022-03-07 09:17:21 Test Item Value Reference Range Interpretation Comments POCT GLU (test code = 6414324882) 89 mg/dL 70-110 Lab Interpretation (test code = Normal 05000-6) [id number] 08:30:40 Test Item Value Reference Range Interpretation Comments BASE EXCESS, CORD mEq/L (test code = 6131406150) AC PH, CORD (BEAKER) 7.18-7.38 (test code = 3392894404) PC02, CORD (test code See_Comment [Auto mated message] The = 4669006051) system which g enerated this result transmit lynn reference range : 32 - 66 mmHg. The refer ence range was not used to interpret this result as normal/abnormal . PO2, CORD (test code See_Comment [Autom ated message] The = 2610643035) system which g enerated this result transmit lynn reference range : 10 - 30 mmHg. The refer ence range was not used to interpret this result as normal/abnormal . BICARBONATE, CORD See_Comment [Automate d message] The (test code = system which ge nerated this 8183540531) result transmit lynn reference range : 17 - 27 mEq/L. The refe rence range was not used to interpret this result as normal/abnormal . [facility] CORD [id number] 08:30:40 Test Item Value Reference Range Interpretation Comments BASE EXCESS, CORD mEq/L (test code = 2381033558) AC PH, CORD (BEAKER) 7.18-7.38 (test code = 4047179886) PC02, CORD (test code See_Comment [Auto mated message] The = 2179129294) system which g enerated this result transmit lynn reference range : 32 - 66 mmHg. The refer ence range was not used to interpret this result as normal/abnormal . PO2, CORD (test code See_Comment [Autom ated message] The = 0720344371) system which g enerated this result transmit lynn reference range : 10 - 30 mmHg. The refer ence range was not used to interpret this result as normal/abnormal . BICARBONATE, CORD See_Comment [Automate d message] The (test code = system which ge nerated this 8727432636) result transmit lynn reference range : 17 - 27 mEq/L. The refe rence range was not used to interpret this result as normal/abnormal . [facility] CORD [id number] 08:28:14 Test Item Value Reference Range Interpretation Comments VENOUS BASE EXCESS, CORD mEq/L (test code = 3452621217) VENOUS PH, CORD (test 7.25-7.45 code = 0928107183) VENOUS PC02, CORD (test See_Comment H [Au tomated message] code = 2718392440) The syste m which generated this result transmitted ref erence range: 27 - 49 mmHg. The reference r shade was not used to interpret this result as normal/abnor mal. VENOUS PO2, CORD (test See_Comment L [Aut omated message] code = 0095664931) The syste m which generated this result transmitted ref erence range: 17 - 41 mmHg. The reference r shade was not used to interpret this result as normal/abnor mal. VENOUS BICARBONATE, CORD See_Comment [A utomated message] (test code = 3825203476) The system which generated this result transmitted ref erence range: 12 - 29 mEq/L. The reference r shade was not used to interpret this result as normal/abnor mal. Lab Interpretation (test Abnormal code = 67494-3) [facility] CORD [id number] 08:28:14 Test Item Value Reference Range Interpretation Comments VENOUS BASE EXCESS, CORD mEq/L (test code = 5879044643) VENOUS PH, CORD (test 7.25-7.45 code = 6125954231) VENOUS PC02, CORD (test See_Comment H [Au tomated message] code = 6479679015) The syste m which generated this result transmitted ref erence range: 27 - 49 mmHg. The reference r shade was not used to interpret this result as normal/abnor mal. VENOUS PO2, CORD (test See_Comment L [Aut omated message] code = 4235030610) The syste m which generated this result transmitted ref erence range: 17 - 41 mmHg. The reference r shade was not used to interpret this result as normal/abnor mal. VENOUS BICARBONATE, CORD See_Comment [A utomated message] (test code = 9143430253) The system which generated this result transmitted ref erence range: 12 - 29 mEq/L. The reference r shade was not used to interpret this result as normal/abnor mal. Lab Interpretation (test Abnormal code = 86846-9) [facility] GLUCOSE (AUTOMATED)2022-03-07 06:24:48 Test Item Value Reference Range Interpretation Comments POCT GLU (test code = 3527789924) 65 mg/dL 70-110 L Lab Interpretation (test code = Abnormal 60376-9) [facility] GLUCOSE (AUTOMATED)2022-03-07 06:24:48 Test Item Value Reference Range Interpretation Comments POCT GLU (test code = 8828995440) 65 mg/dL 70-110 L Lab Interpretation (test code = Abnormal 33729-4) [facility] GLUCOSE (AUTOMATED)2022-03-07 00:59:43 Test Item Value Reference Range Interpretation Comments POCT GLU (test code = 5994068395) 186 mg/dL 70-110 H Lab Interpretation (test code = Abnormal 86023-3) [facility] GLUCOSE (AUTOMATED)2022-03-07 00:59:43 Test Item Value Reference Range Interpretation Comments POCT GLU (test code = 8316639235) 186 mg/dL 70-110 H Lab Interpretation (test code = Abnormal 35334-8) [facility] GLUCOSE (AUTOMATED)2022-03-06 22:14:52 Test Item Value Reference Range Interpretation Comments POCT GLU (test code = 6246873091) 162 mg/dL 70-110 H Lab Interpretation (test code = Abnormal 75960-1) [facility] GLUCOSE (AUTOMATED)2022-03-06 22:14:52 Test Item Value Reference Range Interpretation Comments POCT GLU (test code = 5775444873) 162 mg/dL 70-110 H Lab Interpretation (test code = Abnormal 58408-8) [facility] GLUCOSE (AUTOMATED)2022-03-06 20:58:51 Test Item Value Reference Range Interpretation Comments POCT GLU (test code = 2413006154) 137 mg/dL 70-110 H Lab Interpretation (test code = Abnormal 40328-7) [facility] GLUCOSE (AUTOMATED)2022-03-06 20:58:51 Test Item Value Reference Range Interpretation Comments POCT GLU (test code = 7887007782) 137 mg/dL 70-110 H Lab Interpretation (test code = Abnormal 70036-7) [facility] GLUCOSE (AUTOMATED)2022-03-06 16:05:45 Test Item Value Reference Range Interpretation Comments POCT GLU (test code = 7158787355) 101 mg/dL 70-110 Lab Interpretation (test code = Normal 20291-4) [facility] GLUCOSE (AUTOMATED)2022-03-06 16:05:45 Test Item Value Reference Range Interpretation Comments POCT GLU (test code = 8538601795) 101 mg/dL 70-110 Lab Interpretation (test code = Normal 31414-1) [facility] GLUCOSE (AUTOMATED)2022-03-06 13:00:09 Test Item Value Reference Range Interpretation Comments POCT GLU (test code = 1823040272) 103 mg/dL 70-110 Lab Interpretation (test code = Normal 22856-7) [facility] GLUCOSE (AUTOMATED)2022-03-06 13:00:09 Test Item Value Reference Range Interpretation Comments POCT GLU (test code = 4339371280) 103 mg/dL 70-110 Lab Interpretation (test code = Normal 44705-9) [facility] GLUCOSE (AUTOMATED)2022-03-06 06:05:20 Test Item Value Reference Range Interpretation Comments POCT GLU (test code = 9081434425) 229 mg/dL 70-110 H Lab Interpretation (test code = Abnormal 47852-1) [facility] GLUCOSE (AUTOMATED)2022-03-06 06:05:20 Test Item Value Reference Range Interpretation Comments POCT GLU (test code = 4516588196) 229 mg/dL 70-110 H Lab Interpretation (test code = Abnormal 21657-5) [facility] GLUCOSE (AUTOMATED)2022-03-06 01:16:23 Test Item Value Reference Range Interpretation Comments POCT GLU (test code = 3531376318) 218 mg/dL 70-110 H Lab Interpretation (test code = Abnormal 87535-1) [facility] GLUCOSE (AUTOMATED)2022-03-06 01:16:23 Test Item Value Reference Range Interpretation Comments POCT GLU (test code = 5082877799) 218 mg/dL 70-110 H Lab Interpretation (test code = Abnormal 34222-2) [facility] GLUCOSE (AUTOMATED)2022-03-05 22:28:54 Test Item Value Reference Range Interpretation Comments POCT GLU (test code = 5796406171) 117 mg/dL 70-110 H Lab Interpretation (test code = Abnormal 72283-2) [facility] GLUCOSE (AUTOMATED)2022-03-05 22:28:54 Test Item Value Reference Range Interpretation Comments POCT GLU (test code = 7965912010) 117 mg/dL 70-110 H Lab Interpretation (test code = Abnormal 01273-7) [facility] GLUCOSE (AUTOMATED)2022-03-05 19:52:13 Test Item Value Reference Range Interpretation Comments POCT GLU (test code = 7202841102) 137 mg/dL 70-110 H Lab Interpretation (test code = Abnormal 81596-8) [facility] GLUCOSE (AUTOMATED)2022-03-05 19:52:13 Test Item Value Reference Range Interpretation Comments POCT GLU (test code = 6655842528) 137 mg/dL 70-110 H Lab Interpretation (test code = Abnormal 91927-4) [facility] GLUCOSE (AUTOMATED)2022-03-05 16:34:08 Test Item Value Reference Range Interpretation Comments POCT GLU (test code = 1812308847) 97 mg/dL 70-110 Lab Interpretation (test code = Normal 82545-1) [facility] GLUCOSE (AUTOMATED)2022-03-05 16:34:08 Test Item Value Reference Range Interpretation Comments POCT GLU (test code = 2374986677) 97 mg/dL 70-110 Lab Interpretation (test code = Normal 61333-9) [facility] GLUCOSE (AUTOMATED)2022-03-05 13:25:47 Test Item Value Reference Range Interpretation Comments POCT GLU (test code = 4355888551) 107 mg/dL 70-110 Lab Interpretation (test code = Normal 56059-7) [facility] GLUCOSE (AUTOMATED)2022-03-05 13:25:47 Test Item Value Reference Range Interpretation Comments POCT GLU (test code = 5740740824) 107 mg/dL 70-110 Lab Interpretation (test code = Normal 39542-7) [facility] - ONCE [id number] 06:13:19 Test Item Value Reference Range Interpretation Comments ABO & RH (test code A POSITIVE Performe d at [facility] = 20) Laboratory Serv [facility] [place] [address] s [id number] Free: [phone] A No. [id number] IAT (test code = Negative Performed a t [facility] 1185) Laboratory Serv [facility] [address] [place] [address] s [address]Giex Free: [phone] A No. [id number] [facility] - ONCE [id number] 06:13:19 Test Item Value Reference Range Interpretation Comments ABO & RH (test code A POSITIVE Performe d at [facility] = 20) Laboratory Serv [facility] [address] [facility] s [address]Jqju Free: [phone] A No. [id number] IAT (test code = Negative Performed a t [facility] 1185) Laboratory Serv [facility] [address] [facility] s [address]Sgjs Free: [phone] A No. [id number] [facility] GLUCOSE (AUTOMATED)2022-03-05 01:54:27 Test Item Value Reference Range Interpretation Comments POCT GLU (test code = 8808385417) 195 mg/dL 70-110 H Lab Interpretation (test code = Abnormal 90871-8) [facility] GLUCOSE (AUTOMATED)2022-03-05 01:54:27 Test Item Value Reference Range Interpretation Comments POCT GLU (test code = 1194824961) 195 mg/dL 70-110 H Lab Interpretation (test code = Abnormal 74660-5) [facility] GLUCOSE (AUTOMATED)2022-03-04 21:28:46 Test Item Value Reference Range Interpretation Comments POCT GLU (test code = 9519007871) 142 mg/dL 70-110 H Lab Interpretation (test code = Abnormal 48597-3) [facility] GLUCOSE (AUTOMATED)2022-03-04 21:28:46 Test Item Value Reference Range Interpretation Comments POCT GLU (test code = 6623967642) 142 mg/dL 70-110 H Lab Interpretation (test code = Abnormal 68155-9) [facility] GLUCOSE (AUTOMATED)2022-03-04 19:34:02 Test Item Value Reference Range Interpretation Comments POCT GLU (test code = 8416794381) 154 mg/dL 70-110 H Lab Interpretation (test code = Abnormal 47537-3) [facility] GLUCOSE (AUTOMATED)2022-03-04 19:34:02 Test Item Value Reference Range Interpretation Comments POCT GLU (test code = 0617901650) 154 mg/dL 70-110 H Lab Interpretation (test code = Abnormal 64048-3) [facility] GLUCOSE (AUTOMATED)2022-03-04 16:21:03 Test Item Value Reference Range Interpretation Comments POCT GLU (test code = 7979482852) 103 mg/dL 70-110 Lab Interpretation (test code = Normal 57262-5) [facility] GLUCOSE (AUTOMATED)2022-03-04 16:21:03 Test Item Value Reference Range Interpretation Comments POCT GLU (test code = 5890356361) 103 mg/dL 70-110 Lab Interpretation (test code = Normal 61566-1) [facility] GLUCOSE (AUTOMATED)2022-03-04 13:43:17 Test Item Value Reference Range Interpretation Comments POCT GLU (test code = 5790573025) 95 mg/dL 70-110 Lab Interpretation (test code = Normal 91162-9) [facility] GLUCOSE (AUTOMATED)2022-03-04 13:43:17 Test Item Value Reference Range Interpretation Comments POCT GLU (test code = 6652129830) 95 mg/dL 70-110 Lab Interpretation (test code = Normal 07727-3) [facility] GLUCOSE (AUTOMATED)2022-03-04 02:00:15 Test Item Value Reference Range Interpretation Comments POCT GLU (test code = 2265244815) 142 mg/dL 70-110 H Lab Interpretation (test code = Abnormal 29866-1) [facility] GLUCOSE (AUTOMATED)2022-03-04 02:00:15 Test Item Value Reference Range Interpretation Comments POCT GLU (test code = 8842233705) 142 mg/dL 70-110 H Lab Interpretation (test code = Abnormal 91662-0) [facility] GLUCOSE (AUTOMATED)2022-03-04 00:40:52 Test Item Value Reference Range Interpretation Comments POCT GLU (test code = 0756091870) 187 mg/dL 70-110 H Lab Interpretation (test code = Abnormal 06364-0) [facility] GLUCOSE (AUTOMATED)2022-03-04 00:40:52 Test Item Value Reference Range Interpretation Comments POCT GLU (test code = 5519586995) 187 mg/dL 70-110 H Lab Interpretation (test code = Abnormal 26729-0) [facility] GLUCOSE (AUTOMATED)2022-03-03 22:53:05 Test Item Value Reference Range Interpretation Comments POCT GLU (test code = 7990128534) 107 mg/dL 70-110 Lab Interpretation (test code = Normal 08483-6) [facility] 22:53:05 Test Item Value Reference Range Interpretation Comments POCT GLU (test code = 1181186628) 107 mg/dL 70-110 Lab Interpretation (test code = Normal 40319-0) [facility] GLUCOSE (AUTOMATED)2022-03-03 20:12:00 Test Item Value Reference Range Interpretation Comments POCT GLU (test code = 6709534121) 163 mg/dL 70-110 H Lab Interpretation (test code = Abnormal 72414-3) [facility] GLUCOSE (AUTOMATED)2022-03-03 20:12:00 Test Item Value Reference Range Interpretation Comments POCT GLU (test code = 3831180679) 163 mg/dL 70-110 H Lab Interpretation (test code = Abnormal 39932-5) [facility] GLUCOSE (AUTOMATED)2022-03-03 14:56:43 Test Item Value Reference Range Interpretation Comments POCT GLU (test code = 4970471088) 129 mg/dL 70-110 H Lab Interpretation (test code = Abnormal 23564-7) [facility] GLUCOSE (AUTOMATED)2022-03-03 14:56:43 Test Item Value Reference Range Interpretation Comments POCT GLU (test code = 6509559597) 129 mg/dL 70-110 H Lab Interpretation (test code = Abnormal 33347-2) [facility] GLUCOSE (AUTOMATED)2022-03-03 01:27:57 Test Item Value Reference Range Interpretation Comments POCT GLU (test code = 7520982655) 176 mg/dL 70-110 H Lab Interpretation (test code = Abnormal 06013-2) [facility] GLUCOSE (AUTOMATED)2022-03-03 01:27:57 Test Item Value Reference Range Interpretation Comments POCT GLU (test code = 1364468079) 176 mg/dL 70-110 H Lab Interpretation (test code = Abnormal 72073-5) [facility] GLUCOSE (AUTOMATED)2022-03-02 22:38:47 Test Item Value Reference Range Interpretation Comments POCT GLU (test code = 1820060956) 107 mg/dL 70-110 Lab Interpretation (test code = Normal 50413-1) [facility] GLUCOSE (AUTOMATED)2022-03-02 22:38:47 Test Item Value Reference Range Interpretation Comments POCT GLU (test code = 2682799520) 107 mg/dL 70-110 Lab Interpretation (test code = Normal 26449-4) [facility] GLUCOSE (AUTOMATED)2022-03-02 21:06:15 Test Item Value Reference Range Interpretation Comments POCT GLU (test code = 3242915123) 116 mg/dL 70-110 H Lab Interpretation (test code = Abnormal 85417-8) [facility] GLUCOSE (AUTOMATED)2022-03-02 21:06:15 Test Item Value Reference Range Interpretation Comments POCT GLU (test code = 8409911028) 116 mg/dL 70-110 H Lab Interpretation (test code = Abnormal 19313-7) [facility] GLUCOSE (AUTOMATED)2022-03-02 20:08:50 Test Item Value Reference Range Interpretation Comments POCT GLU (test code = 3822057816) 128 mg/dL 70-110 H Lab Interpretation (test code = Abnormal 31449-8) [facility] GLUCOSE (AUTOMATED)2022-03-02 20:08:50 Test Item Value Reference Range Interpretation Comments POCT GLU (test code = 9074473606) 128 mg/dL 70-110 H Lab Interpretation (test code = Abnormal 64178-1) [facility] GLUCOSE (AUTOMATED)2022-03-02 19:02:59 Test Item Value Reference Range Interpretation Comments POCT GLU (test code = 9811670093) 138 mg/dL 70-110 H Lab Interpretation (test code = Abnormal 05631-7) [facility] GLUCOSE (AUTOMATED)2022-03-02 19:02:59 Test Item Value Reference Range Interpretation Comments POCT GLU (test code = 2509711897) 138 mg/dL 70-110 H Lab Interpretation (test code = Abnormal 24582-1) [facility] GLUCOSE (AUTOMATED)2022-03-02 18:12:19 Test Item Value Reference Range Interpretation Comments POCT GLU (test code = 4377537589) 132 mg/dL 70-110 H Lab Interpretation (test code = Abnormal 37561-0) [facility] GLUCOSE (AUTOMATED)2022-03-02 18:12:19 Test Item Value Reference Range Interpretation Comments POCT GLU (test code = 5430011432) 132 mg/dL 70-110 H Lab Interpretation (test code = Abnormal 85702-3) [facility] GLUCOSE (AUTOMATED)2022-03-02 16:59:36 Test Item Value Reference Range Interpretation Comments POCT GLU (test code = 4793111553) 130 mg/dL 70-110 H Lab Interpretation (test code = Abnormal 70346-8) [facility] GLUCOSE (AUTOMATED)2022-03-02 16:59:36 Test Item Value Reference Range Interpretation Comments POCT GLU (test code = 5281639114) 130 mg/dL 70-110 H Lab Interpretation (test code = Abnormal 76513-4) [facility] GLUCOSE (AUTOMATED)2022-03-02 15:58:36 Test Item Value Reference Range Interpretation Comments POCT GLU (test code = 8100899788) 181 mg/dL 70-110 H Lab Interpretation (test code = Abnormal 84305-8) [facility] GLUCOSE (AUTOMATED)2022-03-02 15:58:36 Test Item Value Reference Range Interpretation Comments POCT GLU (test code = 1085680890) 181 mg/dL 70-110 H Lab Interpretation (test code = Abnormal 77394-3) [facility] GLUCOSE (AUTOMATED)2022-03-02 13:39:02 Test Item Value Reference Range Interpretation Comments POCT GLU (test code = 7667670075) 138 mg/dL 70-110 H Lab Interpretation (test code = Abnormal 85121-1) [facility] GLUCOSE (AUTOMATED)2022-03-02 13:39:02 Test Item Value Reference Range Interpretation Comments POCT GLU (test code = 1488635909) 138 mg/dL 70-110 H Lab Interpretation (test code = Abnormal 08702-8) [facility] GLUCOSE (AUTOMATED)2022-03-02 12:41:57 Test Item Value Reference Range Interpretation Comments POCT GLU (test code = 6628353961) 138 mg/dL 70-110 H Lab Interpretation (test code = Abnormal 71565-2) [facility] GLUCOSE (AUTOMATED)2022-03-02 12:41:57 Test Item Value Reference Range Interpretation Comments POCT GLU (test code = 0725669410) 138 mg/dL 70-110 H Lab Interpretation (test code = Abnormal 81742-6) [facility] GLUCOSE (AUTOMATED)2022-03-02 11:29:04 Test Item Value Reference Range Interpretation Comments POCT GLU (test code = 7367427904) 125 mg/dL 70-110 H Lab Interpretation (test code = Abnormal 45679-6) [facility] GLUCOSE (AUTOMATED)2022-03-02 11:29:04 Test Item Value Reference Range Interpretation Comments POCT GLU (test code = 3413265849) 125 mg/dL 70-110 H Lab Interpretation (test code = Abnormal 20164-8) [facility] GLUCOSE (AUTOMATED)2022-03-02 10:34:58 Test Item Value Reference Range Interpretation Comments POCT GLU (test code = 2403044061) 135 mg/dL 70-110 H Lab Interpretation (test code = Abnormal 83671-5) [facility] GLUCOSE (AUTOMATED)2022-03-02 10:34:58 Test Item Value Reference Range Interpretation Comments POCT GLU (test code = 1387793559) 135 mg/dL 70-110 H Lab Interpretation (test code = Abnormal 24557-3) [facility] GLUCOSE (AUTOMATED)2022-03-02 08:22:53 Test Item Value Reference Range Interpretation Comments POCT GLU (test code = 9427518382) 134 mg/dL 70-110 H Lab Interpretation (test code = Abnormal 60115-7) [facility] GLUCOSE (AUTOMATED)2022-03-02 08:22:53 Test Item Value Reference Range Interpretation Comments POCT GLU (test code = 7128122861) 134 mg/dL 70-110 H Lab Interpretation (test code = Abnormal 55643-3) [facility] 06:40:08 Test Item Value Reference Range Interpretation Comments POCT GLU (test code = 7457597310) 140 mg/dL 70-110 H Lab Interpretation (test code = Abnormal 03850-6) [facility] GLUCOSE (AUTOMATED)2022-03-02 06:40:08 Test Item Value Reference Range Interpretation Comments POCT GLU (test code = 7665003044) 140 mg/dL 70-110 H Lab Interpretation (test code = Abnormal 80364-6) [facility] GLUCOSE (AUTOMATED)2022-03-02 05:35:45 Test Item Value Reference Range Interpretation Comments POCT GLU (test code = 9736210832) 150 mg/dL 70-110 H Lab Interpretation (test code = Abnormal 54121-9) [facility] GLUCOSE (AUTOMATED)2022-03-02 05:35:45 Test Item Value Reference Range Interpretation Comments POCT GLU (test code = 0247686332) 150 mg/dL 70-110 H Lab Interpretation (test code = Abnormal 08335-4) [facility] GLUCOSE (AUTOMATED)2022-03-02 01:36:10 Test Item Value Reference Range Interpretation Comments POCT GLU (test code = 3243298264) 280 mg/dL 70-110 H Lab Interpretation (test code = Abnormal 20838-6) [facility] GLUCOSE (AUTOMATED)2022-03-02 01:36:10 Test Item Value Reference Range Interpretation Comments POCT GLU (test code = 5829084424) 280 mg/dL 70-110 H Lab Interpretation (test code = Abnormal 53844-3) [facility] GLUCOSE (AUTOMATED)2022-03-01 23:35:29 Test Item Value Reference Range Interpretation Comments POCT GLU (test code = 0310413080) 203 mg/dL 70-110 H Lab Interpretation (test code = Abnormal 41441-3) [facility] GLUCOSE (AUTOMATED)2022-03-01 23:35:29 Test Item Value Reference Range Interpretation Comments POCT GLU (test code = 2731374978) 203 mg/dL 70-110 H Lab Interpretation (test code = Abnormal 41694-6) [facility] GLUCOSE (AUTOMATED)2022-03-01 22:48:33 Test Item Value Reference Range Interpretation Comments POCT GLU (test code = 272 mg/dL 70-110 H Notifi ed Provider [id number]) Lab Interpretation (test Abnormal code = 91217-4) [facility] GLUCOSE (AUTOMATED)2022-03-01 22:48:33 Test Item Value Reference Range Interpretation Comments POCT GLU (test code = 272 mg/dL 70-110 H Notifi ed Provider [id number]) Lab Interpretation (test Abnormal code = 07375-8) [facility] GLUCOSE (AUTOMATED)2022-03-01 21:37:28 Test Item Value Reference Range Interpretation Comments POCT GLU (test code = 6115641387) 304 mg/dL 70-110 H Lab Interpretation (test code = Abnormal 86872-1) [facility] GLUCOSE (AUTOMATED)2022-03-01 21:37:28 Test Item Value Reference Range Interpretation Comments POCT GLU (test code = 8399932519) 304 mg/dL 70-110 H Lab Interpretation (test code = Abnormal 59743-9) [facility] GLUCOSE (AUTOMATED)2022-03-01 20:33:55 Test Item Value Reference Range Interpretation Comments POCT GLU (test code = 4706685236) 333 mg/dL 70-110 H Lab Interpretation (test code = Abnormal 60300-0) [facility] GLUCOSE (AUTOMATED)2022-03-01 20:33:55 Test Item Value Reference Range Interpretation Comments POCT GLU (test code = 3618819182) 333 mg/dL 70-110 H Lab Interpretation (test code = Abnormal 44369-5) [facility] GLUCOSE (AUTOMATED)2022-03-01 19:37:03 Test Item Value Reference Range Interpretation Comments POCT GLU (test code = 0788851402) 162 mg/dL 70-110 H Lab Interpretation (test code = Abnormal 62583-4) [facility] GLUCOSE (AUTOMATED)2022-03-01 19:37:03 Test Item Value Reference Range Interpretation Comments POCT GLU (test code = 1525322604) 162 mg/dL 70-110 H Lab Interpretation (test code = Abnormal 87521-1) [facility] GLUCOSE (AUTOMATED)2022-03-01 19:26:16 Test Item Value Reference Range Interpretation Comments POCT GLU (test code = 5349655984) 193 mg/dL 70-110 H Lab Interpretation (test code = Abnormal 31329-5) [facility] GLUCOSE (AUTOMATED)2022-03-01 19:26:16 Test Item Value Reference Range Interpretation Comments POCT GLU (test code = 2394093177) 181 mg/dL 70-110 H Lab Interpretation (test code = Abnormal 50627-5) [facility] GLUCOSE (AUTOMATED)2022-03-01 19:26:16 Test Item Value Reference Range Interpretation Comments POCT GLU (test code = 3733323927) 193 mg/dL 70-110 H Lab Interpretation (test code = Abnormal 18919-9) [facility] GLUCOSE (AUTOMATED)2022-03-01 19:26:16 Test Item Value Reference Range Interpretation Comments POCT GLU (test code = 9154284289) 181 mg/dL 70-110 H Lab Interpretation (test code = Abnormal 63276-7) [facility] GLUCOSE (AUTOMATED)2022-03-01 16:48:52 Test Item Value Reference Range Interpretation Comments POCT GLU (test code = 1659176011) 226 mg/dL 70-110 H Lab Interpretation (test code = Abnormal 99387-3) [facility] GLUCOSE (AUTOMATED)2022-03-01 16:48:52 Test Item Value Reference Range Interpretation Comments POCT GLU (test code = 7383192292) 226 mg/dL 70-110 H Lab Interpretation (test code = Abnormal 82349-7) [facility] [id number] 16:02:07 Test Item Value Reference Range Interpretation Comments PROTIME PATIENT (test See_Comment L [Auto mated message] code = 5964-2) The system [employer] generated this result transmitted ref erence range: 10.1 - 1 2.6 Seconds. The reference range was not used to int erpret this result as normal/abnormal . INR (test code = 6301-6) Nor mal INR <1.1; Warfarin Therap eutic range 2.0 to 3. 0 or 2.5 to 3.5, dep ending upon the indica tions. Lab Interpretation (test Abnormal code = 23464-6) [facility] [id number] 16:02:07 Test Item Value Reference Range Interpretation Comments APTT Patient (test code See_Comment L [Au tomated message] = 3173-2) The system [employer] h generated this result transmitted ref erence range: 26 - 36 Seconds. The reference range was not used to int erpret this result as normal/abnormal . Lab Interpretation (test Abnormal code = 94172-9) [facility] 16:02:07 Test Item Value Reference Range Interpretation Comments Fibrinogen (test code = 5561668845) 681 mg/dL 167-453 H Lab Interpretation (test code = Abnormal 53362-4) [facility] / [id number] 16:02:07 Test Item Value Reference Range Interpretation Comments PROTIME PATIENT (test See_Comment L [Auto mated message] code = 5964-2) [facility] generated this result transmitted ref erence range: 10.1 - 1 2.6 Seconds. The reference range was not used to int erpret this result as normal/abnormal . INR (test code = 6301-6) Nor mal INR <1.1; Warfarin Therap eutic range 2.0 to 3. 0 or 2.5 to 3.5, dep ending upon the indica tions. Lab Interpretation (test Abnormal code = 39962-7) [facility] [id number] 16:02:07 Test Item Value Reference Range Interpretation Comments APTT Patient (test code See_Comment L [Au tomated message] = 3173-2) The system [facility] generated this result transmitted ref erence range: 26 - 36 Seconds. The reference range was not used to int erpret this result as normal/abnormal . Lab Interpretation (test Abnormal code = 67575-0) [facility] 16:02:07 Test Item Value Reference Range Interpretation Comments Fibrinogen (test code = 7557792993) 681 mg/dL 167-453 H Lab Interpretation (test code = Abnormal 70902-7) [facility] GLUCOSE (AUTOMATED)2022-03-01 15:39:10 Test Item Value Reference Range Interpretation Comments POCT GLU (test code = 3445366134) 248 mg/dL 70-110 H Lab Interpretation (test code = Abnormal 07143-4) [facility] GLUCOSE (AUTOMATED)2022-03-01 15:39:10 Test Item Value Reference Range Interpretation Comments POCT GLU (test code = 8328253838) 248 mg/dL 70-110 H Lab Interpretation (test code = Abnormal 67710-5) [facility] GLUCOSE (AUTOMATED)2022-03-01 14:30:48 Test Item Value Reference Range Interpretation Comments POCT GLU (test code = 8449775560) 275 mg/dL 70-110 H Lab Interpretation (test code = Abnormal 96349-5) [facility] GLUCOSE (AUTOMATED)2022-03-01 14:30:48 Test Item Value Reference Range Interpretation Comments POCT GLU (test code = 5244154823) 275 mg/dL 70-110 H Lab Interpretation (test code = Abnormal 46787-0) [facility] ONLY - SYPHILIS [id number] 14:17:24 Test Item Value Reference Range Interpretation Comments Syphilis IgG/IgM (test Non-reactive Non-reactive code = 27358-5) LILY (test code = LILY) Non-reactive - No serologic evidence of T. pallidum infection. Cannot exclude incubating or early syphilis. Submit a second specimen in 2-4 weeks if syphilis is clinically suspected. Equivocal - Further testing to follow. Reactive - Further testing to follow. Lab Interpretation (test Normal code = 53507-8) [facility] ONLY - SYPHILIS [id number] 14:17:24 Test Item Value Reference Range Interpretation Comments Syphilis IgG/IgM (test Non-reactive Non-reactive code = 95599-8) LILY (test code = LILY) Non-reactive - No serologic evidence of T. pallidum infection. Cannot exclude incubating or early syphilis. Submit a second specimen in 2-4 weeks if syphilis is clinically suspected. Equivocal - Further testing to follow. Reactive - Further testing to follow. Lab Interpretation (test Normal code = 42816-8) [facility] GLUCOSE (AUTOMATED)2022-03-01 13:42:11 Test Item Value Reference Range Interpretation Comments POCT GLU (test code = 8366572161) 284 mg/dL 70-110 H Lab Interpretation (test code = Abnormal 20717-3) [facility] GLUCOSE (AUTOMATED)2022-03-01 13:42:11 Test Item Value Reference Range Interpretation Comments POCT GLU (test code = 7643094696) 284 mg/dL 70-110 H Lab Interpretation (test code = Abnormal 97669-4) [facility] GLUCOSE (AUTOMATED)2022-03-01 12:40:46 Test Item Value Reference Range Interpretation Comments POCT GLU (test code = 5372842005) 264 mg/dL 70-110 H Lab Interpretation (test code = Abnormal 00166-8) [facility] GLUCOSE (AUTOMATED)2022-03-01 12:40:46 Test Item Value Reference Range Interpretation Comments POCT GLU (test code = 9597766180) 264 mg/dL 70-110 H Lab Interpretation (test code = Abnormal 00913-5) [facility] WITH [id number] 12:06:39 Test Item Value Reference Range Interpretation Comments WBC (test code = See_Comment H [Automated 9790-2) message] The system which generated this result transmit lynn reference range : 4.30 - 11.10 10*3/?L. The reference range was not used to interpret this result as normal/abnormal . RBC (test code = See_Comment L [Automated 789-8) message] The system which generated this result transmit lynn reference range : 3.93 - 5.25 10*6/?L. The reference range was not used to interpret this result as normal/abnormal . HGB (test code = 11.8 g/dL 11.6-15.0 718-7) HCT (test code = 35.1 % 35.7-45.2 L 4544-3) MCV (test code = 89.5 fL 80.6-95.5 787-2) MCH (test code = 30.1 pg 25.9-32.8 785-6) MCHC (test code = 33.6 g/dL 31.6-35.1 786-4) RDW-SD (test code = 42.3 fL 39.0-49.9 49592-5) RDW-CV (test code = 12.9 % 12.0-15.5 788-0) PLT (test code = See_Comment [Automated 777-3) message] The system which generated this result transmit lynn reference range : 166 - 358 10*3/ ?L. The reference range was not u sed to interpret th is result as normal/abnormal . MPV (test code = 9.2 fL 9.5-12.9 L 94246-3) NRBC/100 WBC (test See_Comment [Automat ed code = 4089082688) message] The system which generated this result transmit lynn reference range : 0.0 - 10.0 /100 WBCs. The reference range was not used to interpret this result as normal/abnormal . NRBC x10^3 (test code <0.01 See_Comment [Auto mated = 3199839803) message] The system which generated this result transmit lynn reference range : 10*3/?L. The reference range was not used to interpret this result as normal/abnormal . GRAN MAT (NEUT) % 83.0 % (test code = 770-8) IMM GRAN % (test code 0.30 % = 3536708464) LYMPH % (test code = 9.9 % 736-9) MONO % (test code = 6.6 % 5905-5) EOS % (test code = 0.1 % 713-8) BASO % (test code = 0.1 % 706-2) GRAN MAT x10^3(ANC) 11.84 10*3/uL 1.88-7.09 H (test code = 3567813752) IMM GRAN x10^3 (test 0.05 10*3/uL 0.00-0.06 code = 2324723456) LYMPH x10^3 (test code 1.42 10*3/uL 1.32-3.29 = 731-0) MONO x10^3 (test code 0.95 10*3/uL 0.33-0.92 H = 742-7) EOS x10^3 (test code = <0.03 0.03-0.39 L 711-2) BASO x10^3 (test code <0.03 0.01-0.07 = 704-7) Lab Interpretation Abnormal (test code = 46035-7) [facility] WITH [id number] 12:06:39 Test Item Value Reference Range Interpretation Comments WBC (test code = See_Comment H [Automated 6790-2) message] The system which generated this result transmit lynn reference range : 4.30 - 11.10 10*3/?L. The reference range was not used to interpret this result as normal/abnormal . RBC (test code = See_Comment L [Automated 429-8) message] The system which generated this result transmit lynn reference range : 3.93 - 5.25 10*6/?L. The reference range was not used to interpret this result as normal/abnormal . HGB (test code = 11.8 g/dL 11.6-15.0 718-7) HCT (test code = 35.1 % 35.7-45.2 L 4544-3) MCV (test code = 89.5 fL 80.6-95.5 787-2) MCH (test code = 30.1 pg 25.9-32.8 785-6) MCHC (test code = 33.6 g/dL 31.6-35.1 786-4) RDW-SD (test code = 42.3 fL 39.0-49.9 10053-3) RDW-CV (test code = 12.9 % 12.0-15.5 788-0) PLT (test code = See_Comment [Automated 777-3) message] The system which generated this result transmit lynn reference range : 166 - 358 10*3/ ?L. The reference range was not u sed to interpret th is result as normal/abnormal . MPV (test code = 9.2 fL 9.5-12.9 L 41015-5) NRBC/100 WBC (test See_Comment [Automat ed code = 3657938905) message] The system which generated this result transmit lynn reference range : 0.0 - 10.0 /100 WBCs. The reference range was not used to interpret this result as normal/abnormal . NRBC x10^3 (test code <0.01 See_Comment [Auto mated = 2682138446) message] The system which generated this result transmit lynn reference range : 10*3/?L. The reference range was not used to interpret this result as normal/abnormal . GRAN MAT (NEUT) % 83.0 % (test code = 770-8) IMM GRAN % (test code 0.30 % = 2539511038) LYMPH % (test code = 9.9 % 736-9) MONO % (test code = 6.6 % 5905-5) EOS % (test code = 0.1 % 713-8) BASO % (test code = 0.1 % 706-2) GRAN MAT x10^3(ANC) 11.84 10*3/uL 1.88-7.09 H (test code = 4412416325) IMM GRAN x10^3 (test 0.05 10*3/uL 0.00-0.06 code = 5844784716) LYMPH x10^3 (test code 1.42 10*3/uL 1.32-3.29 = 731-0) MONO x10^3 (test code 0.95 10*3/uL 0.33-0.92 H = 742-7) EOS x10^3 (test code = <0.03 0.03-0.39 L 711-2) BASO x10^3 (test code <0.03 0.01-0.07 = 704-7) Lab Interpretation Abnormal (test code = 88533-9) [facility] GLUCOSE (AUTOMATED)2022-03-01 11:01:54 Test Item Value Reference Range Interpretation Comments POCT GLU (test code = 1645451679) 206 mg/dL 70-110 H Lab Interpretation (test code = Abnormal 74039-7) [facility] GLUCOSE (AUTOMATED)2022-03-01 11:01:54 Test Item Value Reference Range Interpretation Comments POCT GLU (test code = 6445211839) 206 mg/dL 70-110 H Lab Interpretation (test code = Abnormal 99724-9) [facility] GLUCOSE (AUTOMATED)2022-03-01 10:03:24 Test Item Value Reference Range Interpretation Comments POCT GLU (test code = 1808243927) 198 mg/dL 70-110 H Lab Interpretation (test code = Abnormal 18229-1) [facility] GLUCOSE (AUTOMATED)2022-03-01 10:03:24 Test Item Value Reference Range Interpretation Comments POCT GLU (test code = 0823278271) 198 mg/dL 70-110 H Lab Interpretation (test code = Abnormal 94234-1) [facility] GLUCOSE (AUTOMATED)2022-03-01 09:21:56 Test Item Value Reference Range Interpretation Comments POCT GLU (test code = 2017915481) 193 mg/dL 70-110 H Lab Interpretation (test code = Abnormal 62805-3) [facility] GLUCOSE (AUTOMATED)2022-03-01 09:21:56 Test Item Value Reference Range Interpretation Comments POCT GLU (test code = 4587043632) 179 mg/dL 70-110 H Lab Interpretation (test code = Abnormal 62990-7) [facility] GLUCOSE (AUTOMATED)2022-03-01 09:21:56 Test Item Value Reference Range Interpretation Comments POCT GLU (test code = 2897361418) 193 mg/dL 70-110 H Lab Interpretation (test code = Abnormal 31186-7) [facility] 09:21:56 Test Item Value Reference Range Interpretation Comments POCT GLU (test code = 0975256556) 179 mg/dL 70-110 H Lab Interpretation (test code = Abnormal 29775-9) [facility] / [id number] 07:19:15 Test Item Value Reference Range Interpretation Comments PROTIME PATIENT (test See_Comment [Auto mated message] code = 5964-2) The system [employer] generated this result transmitted ref erence range: 10.1 - 1 2.6 Seconds. The re ference range was not u sed to interpret this result as normal/abnor mal. INR (test code = 6301-6) Nor mal INR <1.1; Warfarin Therap eutic range 2.0 to 3. 0 or 2.5 to 3.5, dep ending upon the indica tions. Lab Interpretation (test Normal code = 28860-7) [facility] [id number] 07:19:15 Test Item Value Reference Range Interpretation Comments APTT Patient (test code See_Comment L [Au tomated message] = 3173-2) The system [employer] generated this result transmitted ref erence range: 26 - 36 Seconds. The reference range was not used to int erpret this result as normal/abnormal . Lab Interpretation (test Abnormal code = 62077-0) [facility]15 Test Item Value Reference Range Interpretation Comments Fibrinogen (test code = 1501102725) 733 mg/dL 167-453 H Lab Interpretation (test code = Abnormal 18556-9) [facility] / [id number] 07:19:15 Test Item Value Reference Range Interpretation Comments PROTIME PATIENT (test See_Comment [Auto mated message] code = 5964-2) The system [employer] generated this result transmitted ref erence range: 10.1 - 1 2.6 Seconds. The re ference range was not u sed to interpret this result as normal/abnor mal. INR (test code = 6301-6) Nor mal INR <1.1; Warfarin Therap eutic range 2.0 to 3. 0 or 2.5 to 3.5, dep ending upon the indica tions. Lab Interpretation (test Normal code = 29013-7) [facility] THRM[facility]AS [id number] 07:19:15 Test Item Value Reference Range Interpretation Comments APTT Patient (test code See_Comment L [Au tomated message] = 3173-2) The system [employer] generated this result transmitted ref erence range: 26 - 36 Seconds. The reference range was not used to int erpret this result as normal/abnormal . Lab Interpretation (test Abnormal code = 51297-6) [facility] 07:19:15 Test Item Value Reference Range Interpretation Comments Fibrinogen (test code = 8143763332) 733 mg/dL 167-453 H Lab Interpretation (test code = Abnormal 09877-7) [facility] WITH [id number] 07:11:54 Test Item Value Reference Range Interpretation Comments WBC (test code = See_Comment H [Automated 6690-2) message] The sy stem which generated this result transmitted reference range : 4.30 - 11.10 10*3/?L. The reference range was not used to interpret this result as normal/abnormal . RBC (test code = See_Comment [Automated 789-8) message] The sy stem which generated this result transmitted reference range : 3.93 - 5.25 10*6/?L. The reference range was not used to interpret this result as normal/abnormal . HGB (test code = 12.4 g/dL 11.6-15.0 718-7) HCT (test code = 35.1 % 35.7-45.2 L 4544-3) MCV (test code = 87.5 fL 80.6-95.5 787-2) MCH (test code = 30.9 pg 25.9-32.8 785-6) MCHC (test code = 35.3 g/dL 31.6-35.1 H 786-4) RDW-SD (test code = 40.9 fL 39.0-49.9 93430-3) RDW-CV (test code = 12.8 % 12.0-15.5 788-0) PLT (test code = See_Comment [Automated 777-3) message] The sy stem which generated this result transmitted reference range : 166 - 358 10*3/ ?L. The reference r shade was not used to interpret this result as normal/abnormal . MPV (test code = 9.1 fL 9.5-12.9 L 18668-5) NRBC/100 WBC (test See_Comment [Automat ed code = 6722069478) message] The system which generated this result transmitted reference range : 0.0 - 10.0 /100 WBCs. The refer ence range was not u sed to interpret th is result as normal/abnormal . NRBC x10^3 (test code <0.01 See_Comment [Auto mated = 4213722128) message] The s ystem which generated this result transmitted reference range : 10*3/?L. The reference range was not used to interpret this result as normal/abnormal . GRAN MAT (NEUT) % 76.2 % (test code = 770-8) IMM GRAN % (test code 0.60 % = 0294241056) LYMPH % (test code = 15.0 % 736-9) MONO % (test code = 7.9 % 5905-5) EOS % (test code = 0.1 % 713-8) BASO % (test code = 0.2 % 706-2) GRAN MAT x10^3(ANC) 9.28 10*3/uL 1.88-7.09 H (test code = 3041418234) IMM GRAN x10^3 (test 0.07 10*3/uL 0.00-0.06 H code = 8494642759) LYMPH x10^3 (test code 1.83 10*3/uL 1.32-3.29 = 731-0) MONO x10^3 (test code 0.96 10*3/uL 0.33-0.92 H = 742-7) EOS x10^3 (test code = <0.03 0.03-0.39 L 711-2) BASO x10^3 (test code <0.03 0.01-0.07 = 704-7) Lab Interpretation Abnormal (test code = 27083-8) [facility] WITH [id number] 07:11:54 Test Item Value Reference Range Interpretation Comments WBC (test code = See_Comment H [Automated 6690-2) message] The sy stem which generated this result transmitted reference range : 4.30 - 11.10 10*3/?L. The reference range was not used to interpret this result as normal/abnormal . RBC (test code = See_Comment [Automated 789-8) message] The sy stem which generated this result transmitted reference range : 3.93 - 5.25 10*6/?L. The reference range was not used to interpret this result as normal/abnormal . HGB (test code = 12.4 g/dL 11.6-15.0 718-7) HCT (test code = 35.1 % 35.7-45.2 L 4544-3) MCV (test code = 87.5 fL 80.6-95.5 787-2) MCH (test code = 30.9 pg 25.9-32.8 785-6) MCHC (test code = 35.3 g/dL 31.6-35.1 H 786-4) RDW-SD (test code = 40.9 fL 39.0-49.9 84252-6) RDW-CV (test code = 12.8 % 12.0-15.5 788-0) PLT (test code = See_Comment [Automated 777-3) message] The sy stem which generated this result transmitted reference range : 166 - 358 10*3/ ?L. The reference r shade was not used to interpret this result as normal/abnormal . MPV (test code = 9.1 fL 9.5-12.9 L 31069-6) NRBC/100 WBC (test See_Comment [Automat ed code = 7490006506) message] The system which generated this result transmitted reference range : 0.0 - 10.0 /100 WBCs. The refer ence range was not u sed to interpret th is result as normal/abnormal . NRBC x10^3 (test code <0.01 See_Comment [Auto mated = 7872431175) message] The s ystem which generated this result transmitted reference range : 10*3/?L. The reference range was not used to interpret this result as normal/abnormal . GRAN MAT (NEUT) % 76.2 % (test code = 770-8) IMM GRAN % (test code 0.60 % = 9830807729) LYMPH % (test code = 15.0 % 736-9) MONO % (test code = 7.9 % 5905-5) EOS % (test code = 0.1 % 713-8) BASO % (test code = 0.2 % 706-2) GRAN MAT x10^3(ANC) 9.28 10*3/uL 1.88-7.09 H (test code = 3613340760) IMM GRAN x10^3 (test 0.07 10*3/uL 0.00-0.06 H code = 7501463180) LYMPH x10^3 (test code 1.83 10*3/uL 1.32-3.29 = 731-0) MONO x10^3 (test code 0.96 10*3/uL 0.33-0.92 H = 742-7) EOS x10^3 (test code = <0.03 0.03-0.39 L 711-2) BASO x10^3 (test code <0.03 0.01-0.07 = 704-7) Lab Interpretation Abnormal (test code = 04650-3) [facility] GLUCOSE (AUTOMATED)2022-03-01 04:37:46 Test Item Value Reference Range Interpretation Comments POCT GLU (test code = 0072845025) 280 mg/dL 70-110 H Lab Interpretation (test code = Abnormal 22152-9) [facility] GLUCOSE (AUTOMATED)2022-03-01 04:37:46 Test Item Value Reference Range Interpretation Comments POCT GLU (test code = 7767349463) 280 mg/dL 70-110 H Lab Interpretation (test code = Abnormal 67956-4) [facility] GLUCOSE (AUTOMATED)2022-02-28 23:43:55 Test Item Value Reference Range Interpretation Comments POCT GLU (test code = 5629741598) 148 mg/dL 70-110 H Lab Interpretation (test code = Abnormal 73561-5) [facility] GLUCOSE (AUTOMATED)2022-02-28 23:43:55 Test Item Value Reference Range Interpretation Comments POCT GLU (test code = 2517444072) 148 mg/dL 70-110 H Lab Interpretation (test code = Abnormal 91916-8) [facility] WITH [id number] 22:34:54 Test Item Value Reference Range Interpretation Comments WBC (test code = See_Comment H [Automated 6690-2) message] The system which generated this result transmit lynn reference range : 4.30 - 11.10 10*3/?L. The reference range was not used to interpret this result as normal/abnormal . RBC (test code = See_Comment [Automated 789-8) message] The system which generated this result transmit lynn reference range : 3.93 - 5.25 10*6/?L. The reference range was not used to interpret this result as normal/abnormal . HGB (test code = 13.2 g/dL 11.6-15.0 718-7) HCT (test code = 38.2 % 35.7-45.2 4544-3) MCV (test code = 88.0 fL 80.6-95.5 787-2) MCH (test code = 30.4 pg 25.9-32.8 785-6) MCHC (test code = 34.6 g/dL 31.6-35.1 786-4) RDW-SD (test code = 41.4 fL 39.0-49.9 86305-8) RDW-CV (test code = 12.7 % 12.0-15.5 788-0) PLT (test code = See_Comment [Automated 777-3) message] The system which generated this result transmit lynn reference range : 166 - 358 10*3/ ?L. The reference range was not u sed to interpret th is result as normal/abnormal . MPV (test code = 9.1 fL 9.5-12.9 L 54563-2) NRBC/100 WBC (test See_Comment [Automat ed code = 0892402246) message] The system which generated this result transmit lynn reference range : 0.0 - 10.0 /100 WBCs. The reference range was not used to interpret this result as normal/abnormal . NRBC x10^3 (test code <0.01 See_Comment [Auto mated = 0589200789) message] The system which generated this result transmit lynn reference range : 10*3/?L. The reference range was not used to interpret this result as normal/abnormal . GRAN MAT (NEUT) % 87.0 % (test code = 770-8) IMM GRAN % (test code 0.60 % = 4377145577) LYMPH % (test code = 9.4 % 736-9) MONO % (test code = 2.9 % 5905-5) EOS % (test code = 0.0 % 713-8) BASO % (test code = 0.1 % 706-2) GRAN MAT x10^3(ANC) 11.92 10*3/uL 1.88-7.09 H (test code = 1335848473) IMM GRAN x10^3 (test 0.08 10*3/uL 0.00-0.06 H code = 8527918669) LYMPH x10^3 (test code 1.29 10*3/uL 1.32-3.29 L = 731-0) MONO x10^3 (test code 0.40 10*3/uL 0.33-0.92 = 742-7) EOS x10^3 (test code = <0.03 0.03-0.39 L 711-2) BASO x10^3 (test code <0.03 0.01-0.07 = 704-7) Lab Interpretation Abnormal (test code = 14059-9) [facility] WITH [id number] 22:34:54 Test Item Value Reference Range Interpretation Comments WBC (test code = See_Comment H [Automated 2490-2) message] The system which generated this result transmit lynn reference range : 4.30 - 11.10 10*3/?L. The reference range was not used to interpret this result as normal/abnormal . RBC (test code = See_Comment [Automated 369-8) message] The system which generated this result transmit lynn reference range : 3.93 - 5.25 10*6/?L. The reference range was not used to interpret this result as normal/abnormal . HGB (test code = 13.2 g/dL 11.6-15.0 718-7) HCT (test code = 38.2 % 35.7-45.2 4544-3) MCV (test code = 88.0 fL 80.6-95.5 787-2) MCH (test code = 30.4 pg 25.9-32.8 785-6) MCHC (test code = 34.6 g/dL 31.6-35.1 786-4) RDW-SD (test code = 41.4 fL 39.0-49.9 31943-2) RDW-CV (test code = 12.7 % 12.0-15.5 788-0) PLT (test code = See_Comment [Automated 777-3) message] The system which generated this result transmit lynn reference range : 166 - 358 10*3/ ?L. The reference range was not u sed to interpret th is result as normal/abnormal . MPV (test code = 9.1 fL 9.5-12.9 L 91217-4) NRBC/100 WBC (test See_Comment [Automat ed code = 8185565480) message] The system which generated this result transmit lynn reference range : 0.0 - 10.0 /100 WBCs. The reference range was not used to interpret this result as normal/abnormal . NRBC x10^3 (test code <0.01 See_Comment [Auto mated = 2193883829) message] The system which generated this result transmit lynn reference range : 10*3/?L. The reference range was not used to interpret this result as normal/abnormal . GRAN MAT (NEUT) % 87.0 % (test code = 770-8) IMM GRAN % (test code 0.60 % = 7727594937) LYMPH % (test code = 9.4 % 736-9) MONO % (test code = 2.9 % 5905-5) EOS % (test code = 0.0 % 713-8) BASO % (test code = 0.1 % 706-2) GRAN MAT x10^3(ANC) 11.92 10*3/uL 1.88-7.09 H (test code = 8479494009) IMM GRAN x10^3 (test 0.08 10*3/uL 0.00-0.06 H code = 7324849064) LYMPH x10^3 (test code 1.29 10*3/uL 1.32-3.29 L = 731-0) MONO x10^3 (test code 0.40 10*3/uL 0.33-0.92 = 742-7) EOS x10^3 (test code = <0.03 0.03-0.39 L 711-2) BASO x10^3 (test code <0.03 0.01-0.07 = 704-7) Lab Interpretation Abnormal (test code = 64903-6) [facility] B SURFACE [id number] 16:29:35 Test Item Value Reference Range Interpretation Comments HBsAg Semi-Quantitative (test code = Negative Negative 5195-3) [facility] B SURFACE [id number] 16:29:35 Test Item Value Reference Range Interpretation Comments HBsAg Semi-Quantitative (test code = Negative Negative 5195-3) [facility] and Screen - ONCE [id number] 15:41:22 Test Item Value Reference Range Interpretation Comments ABO & RH (test code A POSITIVE Performe d at [facility] = 20) [facility] [address] [place] [address] s [id number] Free: [phone] A No. [id number] IAT (test code = Negative Performed a t [facility] 1185) [facility] [address] [place] [address] s [id number] Free: [phone] A No. [id number] [facility] Screen - ONCE [id number] 15:41:22 Test Item Value Reference Range Interpretation Comments ABO & RH (test code A POSITIVE Performe d at [facility] = 20) [facility] [address] [place] [address] s [id number] Free: [phone] A No. [id number] IAT (test code = Negative Performed a t [facility] 1185) [facility] [address] [place] [address] s [id number] Free: [phone] A No. [id number] [facility]CIFIC [id number] 14:14:00 Test Item Value Reference Range Interpretation Comments POCT PH U (test code = 3254) n/a 5-8 POCT U LEUK EST (test code = 3263) n/a Negative - Negative POCT U NIT (test code = 3262) n/a Negative - Negative POCT U PROT (test code = 3259) trace Negative - Negative POCT U GLU (test code = 3256) Negative - Negative POCT U KETONE (test code = 3258) n/a Negative - Negative POCT U BLD (test code = 3257) n/a Negative - Negative Lab Interpretation (test code = Normal 37261-6) [facility] URINALYSIS W/O SPECIFIC [id number] 16:52:00 Test Item Value Reference Range Interpretation Comments POCT PH U (test code = 3254) N/A 5-8 POCT U LEUK EST (test code = Negative Negative - Negative 3263) POCT U NIT (test code = 3262) Negative Negative - Negative POCT U PROT (test code = 3259) Positive Negative - Negative POCT U GLU (test code = 3256) Positive Negative - Negative POCT U KETONE (test code = 3258) Negative Negative - Negative POCT U BLD (test code = 3257) Negative Negative - Negative [facility] URINALYSIS W/O SPECIFIC [id number] 14:24:00 Test Item Value Reference Range Interpretation Comments POCT PH U (test code = 3254) n/a 5-8 POCT U LEUK EST (test code = 3263) n/a Negative - Negative POCT U NIT (test code = 3262) n/a Negative - Negative POCT U PROT (test code = 3259) Negative - Negative POCT U GLU (test code = 3256) Negative - Negative POCT U KETONE (test code = 3258) n/a Negative - Negative POCT U BLD (test code = 3257) n/a Negative - Negative [facility]. METABOLIC PANEL (12967)2022-01-23 17:35:01 Test Item Value Reference Range Interpretation Comments NA (test code = 132 mmol/L 135-145 L 5849329355) K (test code = 3.8 mmol/L 3.5-5.0 8712252496) CL (test code = 102 mmol/L 98-108 3067302010) CO2 TOTAL (test code = 19 mmol/L 23-31 L 1265025589) AGAP (test code = 2-16 5673742881) BUN (test code = 8 mg/dL 7-23 4345681606) GLUCOSE (test code = 186 mg/dL 70-110 H 5619320057) CREATININE (test code = 0.35 mg/dL 0.50-1.04 L 3348382128) TOTAL BILI (test code = 0.4 mg/dL 0.1-1.9 5977765478) CALCIUM (test code = 8.9 mg/dL 8.6-10.6 3003619540) T PROTEIN (test code = 6.5 g/dL 6.3-8.2 9110515042) ALBUMIN (test code = 3.7 g/dL 3.5-5.0 4712300945) ALK PHOS (test code = 56 U/L 34-122 9547470844) ALTv (test code = 14 U/L 5-35 1742-6) AST(SGOT) (test code = 22 U/L 13-40 0429435788) eGFR (test code = mL/min/1.73m2 2653515783) LILY (test code = LILY) Association of Glomerular Filtration Rate (GFR) and Staging of Kidney Disease* + --+ --+ ------+| GFR (mL/min/1.73 m2) ?| With Kidney Damage ?| ?Without Kidney Damage+ --------+ --------+ +| ?>90 ?| ?Stage one ?| ? Normal ?+ ---+ ---+ -------+| ?60-89 ?| ?Stage two ?| ? Decreased GFR ? + --+ --+ ------+| ?30-59 ?| ?Stage three ?| ? Stage three ? + --+ --+ ------+| ?15-29 ?| ?Stage four ? | ? Stage four ?+ ---+ ---+ -------+| ?<15 (or dialysis) ? ?| ?Stage five ? | ? Stage five ?+ ---+ ---+ -------+ *Each stage assumes the associated GFR level has been in effect for at least three months. ?Stages 1 to 5, with or without kidney disease, indicate chronic kidney disease. Notes: Determination of stages one and two (with eGFR >59mL/min/1.73 m2) requires estimation of kidney damage for at least three months as defined by structural or functional abnormalities of the kidney, manifested by either:Pathological abnormalities or Markers of kidney damage (including abnormalities in the composition of the blood or urine or abnormalities in imaging tests). Lab Interpretation Abnormal (test code = 12766-9) [facility] SPECIFIC [id number] 15:52:00 Test Item Value Reference Range Interpretation Comments POCT PH U (test code = 3254) n/a 5-8 POCT U LEUK EST (test code = 3263) n/a Negative - Negative POCT U NIT (test code = 3262) n/a Negative - Negative POCT U PROT (test code = 3259) Negative - Negative POCT U GLU (test code = 3256) Negative - Negative POCT U KETONE (test code = 3258) n/a Negative - Negative POCT U BLD (test code = 3257) n/a Negative - Negative [facility]"
[2022-03-27] MEDS ORDERED: CLINDAMYCIN 900MG/D5W 900 MG/50 ML IVPB IV ONE (00:55)
[2022-03-27 01:34] LABS: Absolute Lymphocytes (CBC) 2.9 K/uL (0.7-4.9); Hematocrit 34.2 % (36.0-45.0); Lymphocytes % 28.7 % (15.3-44.8); MPV 6.7 fL (7.6-11.3); RBC Red Blood Cell Count 3.78 M/uL (3.86-4.86)
[2022-03-27 01:48] LABS: Albumin 3.3 g/dL (3.4-5.0); Bilirubin Total 0.2 mg/dL (0.2-1.0); Potassium 4.7 mmol/L (3.5-5.1); Protein, Total 7.9 g/dL (6.4-8.2)
--- NOTE | 2022-03-27 02:49 | ER ---
Nurse's Notes [facility] Name: Terrell Gonzalez Age: 36 yrs Sex: Female : 1985 Arrival Date: 03/26/2022 Time: 22:29 Bed 8 Private MD: Diagnosis: Cellulitis of abdominal wall;Cutaneous abscess of abdominal wall-Post operative Presentation: 03/26 22:45 Chief complaint: Patient states: Reports s/p 03/07/22; Has doctor appt lp1 tomorrow but reports concern with bleeding from site of right side of surgical site. Coronavirus screen: At this time, the client does not indicate any symptoms associated with coronavirus-19. Ebola Screen: No symptoms or risks identified at this time. Risk Assessment: Do you want to hurt yourself or someone else? Patient reports no desire to harm self or others. Onset of symptoms was March 26, 2022. 22:45 Method Of Arrival: Ambulatory lp1 22:45 Acuity: YAMILET 3 lp1 22:46 Initial Sepsis Screen: Does the patient meet any 2 criteria? No. Patient's initial lp1 sepsis screen is negative. Does the patient have a suspected source of infection? No. Patient's initial sepsis screen is negative. Triage Assessment: 03/27 00:07 General: Appears uncomfortable, Behavior is calm, cooperative. Pain: Complains of pain ll3 in suprapubic area. Derm: Wound noted suprapubic area Wound is Pt states had a cercarian March 07, wound is reddened with yellow discharge noted. 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 - Social history:: Smoking status: Patient denies any tobacco usage or history of. Screenin/06 00:09 Abuse screen: Denies threats or abuse. Nutritional screening: No deficits noted. ll3 Tuberculosis screening: No symptoms or risk factors identified. 03:25 Fall Risk No fall in past 12 months (0 pts). No secondary diagnosis (0 pts). IV access ll3 (20 points). Ambulatory Aid- None/Bed Rest/Nurse Assist (0 pts). Gait- Normal/Bed Rest/Wheelchair (0 pts) Mental Status- Oriented to own ability (0 pts). Total Sarmiento Fall Scale indicates No Risk (0-24 pts). Assessment: 00:09 General: See triage assessment. Pain: Complains of pain in suprapubic area. ll3 02:00 Reassessment: Patient and/or family updated on plan of care and expected duration. Pain ll3 level reassessed. Patient is alert, oriented x 3, equal unlabored respirations, skin warm/dry/pink. Vital Signs: 03/26 22:46 BP 125 / 87; Pulse 93; Resp 16; Temp 98.2(TE); Pulse Ox 99% on R/A; Weight 74.84 kg lp1 (R); Height 5 ft. 5 in. (165.10 cm); Pain 0/10; 03/27 01:00 BP 111 / 81; Pulse 92; Resp 16; Pulse Ox 100% on R/A; ll3 03:25 BP 128 / 84; Pulse 88; Resp 16; Pulse Ox 99% on R/A; ll3 03/26 22:46 Body Mass Index 27.46 (74.84 kg, 165.10 cm) lp1 ED Course: 03/26 22:29 Patient arrived in ED. bp1 22:46 Triage completed. lp1 22:46 Arm band placed on right wrist. lp1 23:59 Martin Ivan MD is Attending Physician. kdr 03/27 00:09 Patient has correct armband on for positive identification. Bed in low position. Call ll3 light in reach. Side rails up X 1. Adult w/ patient. 01:44 Inserted saline lock: 18 gauge in left forearm, using aseptic technique. Blood sm5 collected. 02:10 CT Abd/Pelvis - IV Contrast Only In Process Unspecified. EDMS 03:25 No provider procedures requiring assistance completed. IV discontinued, intact, ll3 bleeding controlled, No redness/swelling at site. Pressure dressing applied. Administered Medications: 01:44 Drug: Clindamycin 900 mg Route: IVPB; Infused Over: 30 mins; Site: left forearm; sm5 Outcome: 02:48 Discharge ordered by . kdr 03:25 Discharged to home ambulatory. ll3 03:25 Condition: stable 03:25 Discharge instructions given to patient, Instructed on discharge instructions, follow up and referral plans. medication usage, Demonstrated understanding of instructions, follow-up care, medications, Prescriptions given X 2. 03:25 Patient left the ED. ll3 Signatures: Dispatcher [employer] EDMS Martin Ivan MD MD kdr Pena, Laura, RN RN lp1 Brenda Eng Lynsea RN RN ll3 Pretty White, RN RN sm5 Corrections: (The following items were deleted from the chart) 00:09 00:07 General: Appears ll3 ll3
--- NOTE | 2022-03-27 02:49 | EDPHYS ---
Physician Documentation [facility] Name: Terrell Gonzalez Age: 36 yrs Sex: Female : 1985 Arrival Date: 03/26/2022 Time: 22:29 Bed 8 Private MD: ED Physician Martin Ivan HPI: 03/27 02:22 This 36 yrs old Female presents to ER via Ambulatory with complaints of Post kdr Surgical Bleeding. 02:22 Onset: The symptoms/episode began/occurred today. Severity of symptoms: At their worst kdr the symptoms were mild in the emergency department the symptoms are unchanged. The patient has not experienced similar symptoms in the past. The patient has been recently seen by a physician: She has an appointment tomorrow. Patient has a on 03/07/2022. This afternoon, she noted some blood made from her incision and today later she had some purulent material also draining. She denies fever, nausea or vomiting. He has mild periincisional discomfort but otherwise is not in any acute distress. 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 - Social history:: Smoking status: Patient denies any tobacco usage or history of. ROS: 03/27 02:22 Constitutional: Negative for fever, chills, and weight loss, Eyes: Negative for injury, kdr pain, redness, and discharge, Neck: Negative for injury, pain, and swelling, Cardiovascular: Negative for chest pain, palpitations, and edema, Respiratory: Negative for shortness of breath, cough, wheezing, and pleuritic chest pain, Back: Negative for injury and pain, : Negative for injury, bleeding, discharge, and swelling, MS/Extremity: Negative for injury and deformity, Skin: Negative for injury, rash, and discoloration, Neuro: Negative for headache, weakness, numbness, tingling, and seizure activity. Psych: Negative for depression, anxiety, suicide ideation, homicidal ideation, and hallucinations, Allergy/Immunology: Negative for hives, rash, and allergies, Endocrine: Negative for neck swelling, polydipsia, polyuria, polyphagia, and marked weight changes, Hematologic/Lymphatic: Negative for swollen nodes, abnormal bleeding, and unusual bruising. Abdomen/GI: Positive for Patient has a left lateral incision lower abdominal suprapubic region where she had the . There is purulent drainage from the left aspect of the incision. Exam: 02:22 Constitutional: This is a well developed, well nourished patient who is awake, alert, kdr and in no acute distress. Head/Face: Normocephalic, atraumatic. Eyes: Pupils equal round and reactive to light, extra-ocular motions intact. Lids and lashes normal. Conjunctiva and sclera are non-icteric and not injected. Cornea within normal limits. Periorbital areas with no swelling, redness, or edema. Neck: Trachea midline, no thyromegaly or masses palpated, and no cervical lymphadenopathy. Supple, full range of motion without nuchal rigidity, or vertebral point tenderness. No Meningismus. Chest/axilla: Normal chest wall appearance and motion. Nontender with no deformity. No lesions are appreciated. Cardiovascular: Regular rate and rhythm with a normal S1 and S2. No gallops, murmurs, or rubs. Normal PMI, no JVD. No pulse deficits. Respiratory: Lungs have equal breath sounds bilaterally, clear to auscultation and percussion. No rales, rhonchi or wheezes noted. No increased work of breathing, no retractions or nasal flaring. Back: No spinal tenderness. No costovertebral tenderness. Full range of motion. MS/ Extremity: Pulses equal, no cyanosis. Neurovascular intact. Full, normal range of motion. Neuro: Awake and alert, GCS 15, oriented to person, place, time, and situation. Cranial nerves II-XII grossly intact. Motor strength 5/5 in all extremities. Sensory grossly intact. Cerebellar exam normal. Normal gait. Psych: Awake, alert, with orientation to person, place and time. Behavior, mood, and affect are within normal limits. 02:22 Abdomen/GI: Inspection: scar(s), are noted in the suprapubic area, Bowel sounds: active, Palpation: soft, mild abdominal tenderness, in the suprapubic area. Vital Signs: 03/26 22:46 BP 125 / 87; Pulse 93; Resp 16; Temp 98.2(TE); Pulse Ox 99% on R/A; Weight 74.84 kg lp1 (R); Height 5 ft. 5 in. (165.10 cm); Pain 0/10; 03/27 01:00 BP 111 / 81; Pulse 92; Resp 16; Pulse Ox 100% on R/A; ll3 03:25 BP 128 / 84; Pulse 88; Resp 16; Pulse Ox 99% on R/A; ll3 03/26 22:46 Body Mass Index 27.46 (74.84 kg, 165.10 cm) lp1 MDM: 02:22 Data reviewed: vital signs, nurses notes, lab test result(s), radiologic studies. kdr Counseling: I had a detailed discussion with the patient and/or guardian regarding: the historical points, exam findings, and any diagnostic results supporting the discharge/admit diagnosis, lab results, radiology results, the need for outpatient follow up. 02:48 Patient medically screened. kdr 03/27 00:13 Order name: CBC with Diff; Complete Time: 02:20 kdr 03/27 00:13 Order name: Comprehensive Metabolic Panel; Complete Time: 02:20 kdr 03/27 00:13 Order name: CT Abd/Pelvis - IV Contrast Only kdr 03/27 00:13 Order name: Blood Culture Adult (2) kdr 03/27 00:13 Order name: Wound Culture kdr Administered Medications: 01:44 Drug: Clindamycin 900 mg Route: IVPB; Infused Over: 30 mins; Site: left forearm; sm5 Disposition Summary: 03/27/22 02:48 Discharge Ordered Location: Home kdr Problem: new kdr Symptoms: have improved kdr Condition: Stable kdr Diagnosis - Cellulitis of abdominal wall kdr - Cutaneous abscess of abdominal wall - Post operative kdr Followup: kdr - With: Private Physician - When: 2 - 3 days - Reason: If symptoms return, Further diagnostic work-up, Recheck today's complaints, Continuance of care, Re-evaluation by your physician Discharge Instructions: - Discharge Summary Sheet kdr - Cellulitis, Adult kdr - Skin Abscess, [id number] kdr Forms: - Medication Reconciliation Form kdr - Thank You Letter kdr - Antibiotic Education kdr Prescriptions: - Clindamycin HCl 300 mg Oral Capsule - take 1 capsule by ORAL route every 6 hours for 7 days; 28 capsule; Refills: 0, kdr Product Selection Permitted - Bactrim DS 800-160 mg Oral Tablet - take 1 tablet by ORAL route every 12 hours for 7 days; 14 tablet; Refills: 0, kdr Product Selection Permitted Signatures: Dispatcher [employer] Martin Alicia MD MD kdr Pena, Laura, RN RN lp1 Pretty White RN RN sm5
[2022-03-27 03:34] VITALS: TEMP 98.2
[2022-03-27 03:40] VITALS: BP 128/84; O2SAT 99
--- NOTE | 2022-03-30 11:22 | RAD REPORT ---
EXAM DESCRIPTION: CT - Abdomen Pelvis W Contrast - 03/27/2022 6:38 am CLINICAL HISTORY: incisional pain/infection COMPARISON: None Available. TECHNIQUE: CT of the abdomen and pelvis performed following IV administration of iodinated contras t. This exam was performed according to our departmental dose-optimization program, which includes au tomated exposure control, adjustment of the mA and/or kV according to patient size and/or use of iter ative reconstruction technique. FINDINGS: Lung Bases: The visualized lung bases are clear. Bones: No destructive bone lesions identified. Abdomen: Liver: The liver has normal size and density. No intrahepatic biliary dilatation. Gallbladder: No calcified gallstones. Spleen, Pancreas, and Adrenal Glands: The spleen, pancreas, and adrenal glands are unremarkable. Kidneys: No hydronephrosis or obstructing calculus. Vasculature: The aorta and IVC have normal caliber and position. The portal vein is patent. The pro ximal visceral and renal arteries are patent. Stomach: The stomach and duodenum have normal course. Other: No free intraperitoneal air. Trace free fluid. Fat stranding, ill-defined fluid, and tiny foci of air in the lower abdominal wall subcutaneous soft tissues. No well-circumscribed rim-enhancin g fluid collection. Pelvis: Bladder: Mild wall thickening of the urinary bladder. Bowel: No dilated loops of large or small bowel. Moderate amount of stool. Appendix: Normal appendix. Pelvis: Uterus is within normal limits for state. Mild likely postoperative fat stranding adjacent uterus. IMPRESSION: 1. Fat stranding, ill-defined fluid, and tiny foci of air in the lower abdominal wall subcutaneous soft tissues. These findings may be postoperative however cellulitis and developing infe ctious fluid collection could also produce this appearance. No well-defined abscess identified on thi s study. 2. Mild wall thickening of the urinary bladder. This could be seen with cystitis. 3. Uterus is within normal limits for state. Mild likely postoperative fat stranding adj acent to the uterus. Electronically signed by: Ramin Keith 03/27/2022 2:31 AM CDT Due to temporary technical issues with the PACS/Fluency reporting system, reports are being signed by the in house radiologist without review as a courtesy to ensure prompt reporting. The interpreting r adiologist is fully responsible for the content of the report.
== END 2022-03-27 03:25 | disposition home or self-care (01) ==
LOC: ER 22:28
DX: L02.211 Cutaneous abscess of abdominal wall (principal); L03.311 Cellulitis of abdominal wall; Z98.890 Other specified postprocedural states; E11.9 Type 2 diabetes mellitus without complications; Z79.4 Long term (current) use of insulin
CPT/HCPCS: 87040 ×2; 87070; 85025; 36415; 87205; 87077; 87186; 80053; 74177; 96374; 99284; Q9967